=== PATIENT | male | born 1955 | race African-American/Black ===

== ENCOUNTER 2020-10-01 06:45 | Inpatient (IN) | payer MEDICARE ==
[2020-10-01 07:38] LABS: #Eosinphils 0.1 thou/uL (0.0-0.7); #Lymphocytes 0.9 thou/uL (1.20-3.40); %Basophils 0.6 % (0.0-1.0); %Eosinophils 1.6 % (0.0-10.0); %Lymphocytes 10.8 % (21.0-51.0); %Monocytes 12.7 % (0.0-10.0); %Neutrophils 74.3 % (42.0-75.0); Hemoglobin 11.5 g/dL (14.0-18.0); Mean Corpuscular HGB CONC 32.8 g/dL (32.0-36.0); Mean Corpuscular Hemoglobin 28.4 pg (27.0-31.0); Mean Corpuscular Volume 86.4 fL (78.0-98.0); Mean Platelet Volume 9.1 fL (7.4-10.4); Platelet Count 174 thou/uL (130-400); RBC Distribution Width 13.6 % (11.5-14.5); Red Blood Cell (RBC) Count 4.05 mill/uL (4.70-6.10); White Blood Cell (WBC) Count 8.1 thou/uL (4.8-10.8)
[2020-10-01] MEDS ORDERED: Calcium Chloride 1 GM/10 ML Abboject SYRINGE ONE (07:39)
[2020-10-01] MEDS ORDERED: EPINEPHrine 1 MG/10 ML Abboject SYRINGE ONE (07:39)
[2020-10-01] MEDS ORDERED: Sodium Bicarb 50 MEQ/50 ML Abboject 8.4% SYRINGE ONE (07:39)
[2020-10-01 07:58] LABS: ALT (SGPT) 17 U/L (8-55); AST (SGOT) 22 U/L (5-34); Albumin 2.5 g/dL (3.4-4.8); Alkaline Phosphatase 106 U/L (40-110); Anion Gap 12 mmol/L (10-20); BUN (Urea Nitrogen) 37 mg/dL (8.4-25.7); Bilirubin, Total 0.3 mg/dL (0.2-1.2); Calc. Creatinine Clearance 0 mL/min (70-130); Calcium 7.8 mg/dL (7.8-10.44); Carbon Dioxide 22 mmol/L (23-31); Chloride 106 mmol/L (98-107); Globulin 2.6 g/dL (2.4-3.5); Glucose 109 mg/dL (80-115); Magnesium 1.9 mg/dL (1.6-2.6); Potassium 3.5 mmol/L (3.5-5.1); Protein, Total 5.1 g/dL (5.8-8.1); Sodium 136 mmol/L (136-145)
[2020-10-01 08:19] LABS: CKMB 4.6 ng/mL (0-6.6)
[2020-10-01 08:28] LABS: Bacteria/HPF None Seen HPF (None Seen); Bilirubin Negative (Negative); Blood, Urine 2+ (Negative); Clarity Clear (Clear); Glucose, Urine (Dipstick) 50 mg/dL (Negative); Ketone, Urine Negative (Negative); Leukocyte Negative Leu/uL (Negative); Nitrite Negative (Negative); Protein, Urine (Dipstick) 600 mg/dL (Neg-Trace); RBC/HPF 0-3 HPF (0-3); Specific Gravity, Urine 1.014 (1.002-1.036); Squamous Epithelial None Seen HPF (0-3); Urobilinogen Normal mg/dL (Less than 2); WBC/HPF 0-3 HPF (0-3)
[2020-10-01] MEDS ORDERED: Clopidogrel Bisulfate 75 MG TAB ONE (08:56)
[2020-10-01] MEDS ORDERED: Non-Formulary Item 1 EACH (Ventolin Hfa Inhaler [Ventolin Hfa Inhaler] 60 PUFF Inh) INH PRN (09:34)
[2020-10-01] MEDS ORDERED: Sodium Chloride 0.9% 1,000 ML IV SCH (09:34)
[2020-10-01] MEDS ORDERED: Calcium Carbonate 500 MG ChewTAB PO PRN (09:34)
[2020-10-01] MEDS ORDERED: Dextrose 50% Abboject 50 ML SYRINGE SLOW IVP PRN (09:34)
[2020-10-01] MEDS ORDERED: Guaifenesin DM 100-10/5 ML UDCUP PO PRN (09:34)
[2020-10-01] MEDS ORDERED: Senokot S 8.6-50 MG TAB PO PRN (09:34)
[2020-10-01] MEDS ORDERED: Ondansetron PF 4 MG/2 ML Vial IVP PRN (09:34)
[2020-10-01] MEDS ORDERED: HumaLOG 300 UNITS/3 ML VIAL SC PRN ×2 (09:34)
[2020-10-01] MEDS ORDERED: Dextrose 5% in Water 1,000 ML IV PRN (09:34)
[2020-10-01] MEDS ORDERED: Bisacodyl 10 MG SUPP PR PRN (09:34)
[2020-10-01] MEDS ORDERED: Rocuronium Bromide 10 MG/ML (10ML VIAL) ONE (09:36)
[2020-10-01] MEDS ORDERED: Ketamine 50 MG/ML (10ML VIAL) ONE (09:40)
[2020-10-01] MEDS ORDERED: EPINEPHrine 1 MG/ML AMP ONE ×2 (09:51→10:10)
[2020-10-01 10:08] LABS: Hemoglobin A1c Greater than 14.0 % (4.0-6.0)
[2020-10-01 10:50] LABS: Actual Bicarbonate (HCO3a) 20.9 mEq/L (22-28); Analyzer IN Cardio ER; Base Excess (BEa) -6.1 mEq/L (-2.0 to +3.0); CO2 Tension 47.6 mmHg (35.0-45.0); Carboxyhemoglobin (COHb) 0.3 gm% (0.0-3.0); Hemoglobin (Hb) 11.8 g/dL (14.0-18.0); O2 Tension (PaO2), arterial 125.7 mmHg (> 80.0); Potassium - ABG Lab 3.96 mmol/L (3.70-5.30); Puncture Site LBA; pH, Arterial 7.26 (7.35-7.45)
[2020-10-01] MEDS ORDERED: Ventilator Sedation Protocol 1 EACH FS ONE (12:35)
[2020-10-01] MEDS ORDERED: Fentanyl CADD 100 ML IV SCH (12:45)
[2020-10-01] MEDS ORDERED: Propofol BOLUS 1,000 MG/100 ML VIAL IV PRN (12:45)
[2020-10-01] MEDS ORDERED: Morphine 2 MG/ML VIAL SLOW IVP PRN (12:45)
[2020-10-01] MEDS ORDERED: DISCONTINUE PREVIOUS NARCOTIC PAIN MEDICATIONS AND BENZODIAZEPINES FS SCH (12:45)
[2020-10-01] MEDS ORDERED: Fentanyl BOLUS 250 ML IVPB PRN (12:45)
[2020-10-01] MEDS ORDERED: Iopamidol-370 76% 500 ML 1 ML ONE (12:48)
[2020-10-01] MEDS ORDERED: Norepinephrine 8 MG/0.9% NS 250 ML IVPB SCH (13:15)
[2020-10-01] MEDS ORDERED: DO NOT USE PRE-EXISTING LYTE PROTOCOL FS SCH (13:15)
[2020-10-01] MEDS ORDERED: Phenylephrine 40 MG in Sodium Chloride 0.9% 250 ML 250 ML IVPB SCH (13:15)
[2020-10-01] MEDS ORDERED: Nitroglycerin 50 MG/250 ML BOT 250 ML IVPB PRN (13:21)
[2020-10-01] MEDS: Propofol 1,000 MG/100 ML VIAL IV PRN ×2 (13:22→17:28)
[2020-10-01] MEDS ORDERED: Nitroglycerin 0.4 MG TAB (25 Tab Bottle) SL PRN (13:31)
[2020-10-01 14:02] LABS: Hemoglobin 10.8 g/dL (14.0-18.0); Mean Corpuscular HGB CONC 32.5 g/dL (32.0-36.0); Mean Corpuscular Hemoglobin 27.7 pg (27.0-31.0); Mean Corpuscular Volume 85.4 fL (78.0-98.0); Mean Platelet Volume 8.8 fL (7.4-10.4); Platelet Count 177 thou/uL (130-400); RBC Distribution Width 13.4 % (11.5-14.5); White Blood Cell (WBC) Count 15.6 thou/uL (4.8-10.8)
[2020-10-01 14:05] LABS: FSP-Qualitative ABNORMAL (Normal)
[2020-10-01 14:06] LABS: Fibrinogen 169 mg/dL (253-463)
[2020-10-01 14:07] LABS: INR-International Normal Ratio 2.4; Prothrombin Time 26.6 sec (12.0-14.7)
[2020-10-01 14:08] LABS: FSP-Semiquantitative >320 mcg/mL (Less than 5); PTT 75.6 sec (22.9-36.1)
[2020-10-01 14:15] LABS: Lactic Acid 0.8 mmol/L (0.5-2.2)
[2020-10-01 14:16] LABS: Band 3 % (5-11); Lymphocytes 11 % (21-51); MDiff Complete? YES; Monocytes 2 % (0-10); Neutrophil 83 % (42-75); Platelet Morphology Comment Appears Adequate; Polychromasia SLIGHT = 2-3 cells (100X) (0-2/hpf)
[2020-10-01 14:22] LABS: D-Dimer Test Greater than 20.00 *mcg/mL (0.27-0.43)
[2020-10-01 14:23] LABS: ALT (SGPT) 343 U/L (8-55); AST (SGOT) 502 U/L (5-34); Albumin 2.3 g/dL (3.4-4.8); Alkaline Phosphatase 229 U/L (40-110); Anion Gap 12 mmol/L (10-20); BUN (Urea Nitrogen) 39 mg/dL (8.4-25.7); Bilirubin, Total 0.7 mg/dL (0.2-1.2); Calc. Creatinine Clearance 0 mL/min (70-130); Calcium 7.8 mg/dL (7.8-10.44); Carbon Dioxide 23 mmol/L (23-31); Chloride 107 mmol/L (98-107); Globulin 2.7 g/dL (2.4-3.5); Glucose 154 mg/dL (80-115); Potassium 3.7 mmol/L (3.5-5.1); Sodium 138 mmol/L (136-145)
[2020-10-01] MEDS: Lorazepam 2 MG/ML VIAL SLOW IVP PRN ×3 (14:31→20:31)
[2020-10-01] MEDS: Piperacillin/Tazobactam 2.25 GM in Sodium Chloride 0.9% 100 ML IVPB SCH ×2 (14:31→21:16)
[2020-10-01 14:48] LABS: CKMB 6.1 ng/mL (0-6.6)
[2020-10-01] MEDS ORDERED: Heparin 10,000 UNITS/ 10 ML VIAL SLOW IVP SCH (16:15)
[2020-10-01 16:44] LABS: SARS-CoV-2 PCR by NAA Not Detected (NotDetected)
[2020-10-01 18:02] LABS: Troponin I 0.522 ng/mL (< 0.028)
[2020-10-01 20:15] LABS: #Eosinphils 0.1 thou/uL (0.0-0.7); #Lymphocytes 1.2 thou/uL (1.20-3.40); #Monocytes 0.9 thou/uL (0.11-0.59); #Neutrophils 9.4 thou/uL (1.40-6.50); %Basophils 0.3 % (0.0-1.0); %Eosinophils 0.7 % (0.0-10.0); %Lymphocytes 10.4 % (21.0-51.0); %Monocytes 7.8 % (0.0-10.0); %Neutrophils 80.7 % (42.0-75.0); Mean Corpuscular Hemoglobin 28.2 pg (27.0-31.0); Mean Corpuscular Volume 85.4 fL (78.0-98.0); Platelet Count 173 thou/uL (130-400); RBC Distribution Width 13.4 % (11.5-14.5); Red Blood Cell (RBC) Count 3.56 mill/uL (4.70-6.10); White Blood Cell (WBC) Count 11.7 thou/uL (4.8-10.8)
[2020-10-01 20:23] LABS: INR-International Normal Ratio 1.9; Prothrombin Time 22.2 sec (12.0-14.7)
[2020-10-01 20:24] LABS: PTT 56.3 sec (22.9-36.1)
[2020-10-01 20:47] LABS: Anion Gap 11 mmol/L (10-20); BUN (Urea Nitrogen) 38 mg/dL (8.4-25.7); Calc. Creatinine Clearance 47 mL/min (70-130); Calcium 7.8 mg/dL (7.8-10.44); Carbon Dioxide 22 mmol/L (23-31); Chloride 109 mmol/L (98-107); Glucose 109 mg/dL (80-115); Potassium 3.6 mmol/L (3.5-5.1); Sodium 138 mmol/L (136-145)
[2020-10-01 20:55] LABS: Phosphorus 3.8 mg/dL (2.3-4.7)
[2020-10-01] MEDS ORDERED: Apixaban 2.5 MG TAB PO SCH (21:00)
[2020-10-01] MEDS ORDERED: Apixaban 5 MG TAB PO SCH (21:00)
[2020-10-01] MEDS ORDERED: Atorvastatin Calcium 40 MG TAB PO SCH (21:00)
[2020-10-01] MEDS: Carvedilol 6.25 MG TAB PO SCH (21:17)
[2020-10-01] MEDS: Atorvastatin Calcium 40 MG TAB PO SCH (21:17)
[2020-10-01] MEDS: Heparin 25,000 units/D5W 500 ML IV SCH (21:52)
[2020-10-02] MEDS: Lorazepam 2 MG/ML VIAL SLOW IVP PRN (00:52)
[2020-10-02] MEDS: Propofol 1,000 MG/100 ML VIAL IV PRN ×3 (02:12→21:45)
[2020-10-02] MEDS ORDERED: Vecuronium 10 MG VIAL IV PRN (02:15)
[2020-10-02 04:00] LABS: #Eosinphils 0.1 thou/uL (0.0-0.7); #Monocytes 0.7 thou/uL (0.11-0.59); #Neutrophils 7.1 thou/uL (1.40-6.50); %Basophils 0.5 % (0.0-1.0); %Eosinophils 1.5 % (0.0-10.0); %Monocytes 7.5 % (0.0-10.0); %Neutrophils 79.5 % (42.0-75.0); Hemoglobin 9.5 g/dL (14.0-18.0); Mean Corpuscular HGB CONC 32.9 g/dL (32.0-36.0); Mean Corpuscular Hemoglobin 28.2 pg (27.0-31.0); Mean Corpuscular Volume 85.8 fL (78.0-98.0); Mean Platelet Volume 9.1 fL (7.4-10.4); Platelet Count 151 thou/uL (130-400); RBC Distribution Width 13.4 % (11.5-14.5); Red Blood Cell (RBC) Count 3.36 mill/uL (4.70-6.10)
[2020-10-02 04:05] LABS: Prothrombin Time 22.6 sec (12.0-14.7)
[2020-10-02 04:19] LABS: Albumin 1.7 g/dL (3.4-4.8); Anion Gap 10 mmol/L (10-20); BUN (Urea Nitrogen) 34 mg/dL (8.4-25.7); BUN (Urea Nitrogen) 37 mg/dL (8.4-25.7); BUN/Creatinine Ratio 14.91; Calc. Creatinine Clearance 49 mL/min (70-130); Calc. Creatinine Clearance 50 mL/min (70-130); Calcium 7.6 mg/dL (7.8-10.44); Carbon Dioxide 21 mmol/L (23-31); Carbon Dioxide 22 mmol/L (23-31); Cardiac Risk 4.2 (Less than 4.5); Chloride 111 mmol/L (98-107); Cholesterol 140 mg/dl (< 200 Desired); Glucose 73 mg/dL (80-115); HDL Cholesterol 33 mg/dL (>60 Neg Risk); LDL Cholesterol, Calculated 93 mg/dL; Magnesium 1.8 mg/dL (1.6-2.6); Potassium 3.2 mmol/L (3.5-5.1); Sodium 139 mmol/L (136-145); Sodium 140 mmol/L (136-145); Triglycerides 68 mg/dL (Less than 150)
[2020-10-02 04:40] LABS: CKMB 6.1 ng/mL (0-6.6); PTT Greater than 250.0 sec (22.9-36.1)
[2020-10-02] MEDS: Piperacillin/Tazobactam 2.25 GM in Sodium Chloride 0.9% 100 ML IVPB SCH ×3 (05:18→21:02)
[2020-10-02 07:28] LABS: INR-International Normal Ratio 1.7; Prothrombin Time 20.4 sec (12.0-14.7)
[2020-10-02 07:47] LABS: PTT Greater than 250.0 sec (22.9-36.1)
[2020-10-02 08:46] LABS: Actual Bicarbonate (HCO3a) 22.8 mEq/L (22-28); Base Excess (BEa) -0.6 mEq/L (-2.0 to +3.0); CO2 Tension 32.8 mmHg (35.0-45.0); Calcium, Ionized (arterial) 1.13 mmol/L (1.12-1.30); Carboxyhemoglobin (COHb) 0.3 gm% (0.0-3.0); Hemoglobin (Hb) 10.3 g/dL (14.0-18.0); O2 Tension (PaO2), arterial 112.9 mmHg (> 80.0); Potassium - ABG Lab 3.36 mmol/L (3.70-5.30); pH, Arterial 7.46 (7.35-7.45)
[2020-10-02 08:47] LABS: Puncture Site Arterial Line
[2020-10-02 08:50] LABS: #Eosinphils 0.1 thou/uL (0.0-0.7); #Lymphocytes 0.8 thou/uL (1.20-3.40); #Monocytes 0.8 thou/uL (0.11-0.59); #Neutrophils 7.6 thou/uL (1.40-6.50); %Basophils 0.2 % (0.0-1.0); %Eosinophils 1.5 % (0.0-10.0); %Lymphocytes 8.5 % (21.0-51.0); %Monocytes 8.1 % (0.0-10.0); %Neutrophils 81.8 % (42.0-75.0); Hemoglobin 9.9 g/dL (14.0-18.0); Mean Corpuscular HGB CONC 32.2 g/dL (32.0-36.0); Mean Corpuscular Hemoglobin 27.9 pg (27.0-31.0); Mean Corpuscular Volume 86.4 fL (78.0-98.0); Mean Platelet Volume 9.1 fL (7.4-10.4); Platelet Count 154 thou/uL (130-400); RBC Distribution Width 13.4 % (11.5-14.5); Red Blood Cell (RBC) Count 3.55 mill/uL (4.70-6.10); White Blood Cell (WBC) Count 9.3 thou/uL (4.8-10.8)
[2020-10-02] MEDS: Pantoprazole 40 MG VIAL IVP SCH (08:55)
[2020-10-02] MEDS ORDERED: Clopidogrel Bisulfate 75 MG TAB PO SCH (09:00)
[2020-10-02] MEDS: Aspirin 325 mg Enteric Coated Tablet PO SCH (09:01)
[2020-10-02] MEDS: Dextrose 5 % And 0.9 % NaCl 1,000 ML IV SCH ×2 (09:02→23:24)
[2020-10-02 09:11] LABS: Anion Gap 10 mmol/L (10-20); BUN (Urea Nitrogen) 31 mg/dL (8.4-25.7); Calc. Creatinine Clearance 50 mL/min (70-130); Calcium 7.4 mg/dL (7.8-10.44); Carbon Dioxide 20 mmol/L (23-31); Chloride 111 mmol/L (98-107); Glucose 100 mg/dL (80-115); Magnesium 1.9 mg/dL (1.6-2.6); Phosphorus 3.8 mg/dL (2.3-4.7); Potassium 3.3 mmol/L (3.5-5.1); Sodium 138 mmol/L (136-145)
[2020-10-02] MEDS: Carvedilol 6.25 MG TAB PO SCH ×2 (09:19→21:02)
[2020-10-02 09:40] LABS: CKMB 6.8 ng/mL (0-6.6)
[2020-10-02 12:04] LABS: Chloride 110 mmol/L (98-107); Potassium 3.4 mmol/L (3.5-5.1); Sodium 138 mmol/L (136-145)
[2020-10-02 12:05] LABS: Calcium 7.3 mg/dL (7.8-10.44); Glucose 85 mg/dL (80-115)
[2020-10-02 12:07] LABS: Anion Gap 8 mmol/L (10-20); Carbon Dioxide 23 mmol/L (23-31)
[2020-10-02 12:09] LABS: Calc. Creatinine Clearance 52 mL/min (70-130); Phosphorus 3.9 mg/dL (2.3-4.7)
[2020-10-02 12:10] LABS: BUN (Urea Nitrogen) 31 mg/dL (8.4-25.7)
[2020-10-02 12:11] LABS: Magnesium 1.8 mg/dL (1.6-2.6)
[2020-10-02 16:25] LABS: Anion Gap 9 mmol/L (10-20); BUN (Urea Nitrogen) 29 mg/dL (8.4-25.7); Calc. Creatinine Clearance 51 mL/min (70-130); Calcium 7.4 mg/dL (7.8-10.44); Carbon Dioxide 22 mmol/L (23-31); Chloride 113 mmol/L (98-107); Glucose 76 mg/dL (80-115); Potassium 3.4 mmol/L (3.5-5.1); Sodium 141 mmol/L (136-145)
[2020-10-02 20:31] LABS: Anion Gap 11 mmol/L (10-20); BUN (Urea Nitrogen) 29 mg/dL (8.4-25.7); Calc. Creatinine Clearance 49 mL/min (70-130); Calcium 7.3 mg/dL (7.8-10.44); Carbon Dioxide 24 mmol/L (23-31); Chloride 111 mmol/L (98-107); Glucose 82 mg/dL (80-115); Potassium 3.6 mmol/L (3.5-5.1); Sodium 142 mmol/L (136-145)
[2020-10-02] MEDS: Atorvastatin Calcium 40 MG TAB PO SCH (21:03)
[2020-10-02 23:35] LABS: PTT 217.1 sec (22.9-36.1)
[2020-10-03 01:49] LABS: INR-International Normal Ratio 1.4
[2020-10-03] MEDS: Heparin 25,000 units/D5W 500 ML IV SCH (02:12)
[2020-10-03 04:37] LABS: #Eosinphils 0.3 thou/uL (0.0-0.7); #Lymphocytes 1.2 thou/uL (1.20-3.40); #Monocytes 0.8 thou/uL (0.11-0.59); #Neutrophils 7.7 thou/uL (1.40-6.50); %Basophils 0.3 % (0.0-1.0); %Neutrophils 76.7 % (42.0-75.0); Hemoglobin 9.6 g/dL (14.0-18.0); Mean Corpuscular HGB CONC 32.3 g/dL (32.0-36.0); Mean Corpuscular Hemoglobin 27.9 pg (27.0-31.0); Mean Corpuscular Volume 86.6 fL (78.0-98.0); Mean Platelet Volume 9.4 fL (7.4-10.4); Platelet Count 173 thou/uL (130-400); RBC Distribution Width 13.6 % (11.5-14.5); Red Blood Cell (RBC) Count 3.43 mill/uL (4.70-6.10)
[2020-10-03 04:56] LABS: Anion Gap 10 mmol/L (10-20); BUN (Urea Nitrogen) 27 mg/dL (8.4-25.7); Calc. Creatinine Clearance 47 mL/min (70-130); Calcium 7.4 mg/dL (7.8-10.44); Carbon Dioxide 25 mmol/L (23-31); Chloride 111 mmol/L (98-107); Glucose 84 mg/dL (80-115); Potassium 3.6 mmol/L (3.5-5.1); Sodium 142 mmol/L (136-145)
[2020-10-03] MEDS: Propofol 1,000 MG/100 ML VIAL IV PRN ×3 (05:21→21:42)
[2020-10-03] MEDS: Piperacillin/Tazobactam 2.25 GM in Sodium Chloride 0.9% 100 ML IVPB SCH (05:21)
[2020-10-03 07:39] LABS: Actual Bicarbonate (HCO3a) 21.3 mEq/L (22-28); Base Excess (BEa) -1.2 mEq/L (-2.0 to +3.0); Calcium, Ionized (arterial) 1.04 mmol/L (1.12-1.30); Carboxyhemoglobin (COHb) 0.3 gm% (0.0-3.0); Hemoglobin (Hb) 9.3 g/dL (14.0-18.0); O2 Tension (PaO2), arterial 171.8 mmHg (> 80.0); Potassium - ABG Lab 3.49 mmol/L (3.70-5.30)
[2020-10-03 07:45] LABS: Puncture Site Arterial Line
[2020-10-03] MEDS: Carvedilol 6.25 MG TAB PO SCH ×2 (08:07→21:43)
[2020-10-03] MEDS: Aspirin 325 mg Enteric Coated Tablet PO SCH (08:07)
[2020-10-03] MEDS: Pantoprazole 40 MG VIAL IVP SCH (08:08)
[2020-10-03 08:16] LABS: INR-International Normal Ratio 1.3; Prothrombin Time 16.8 sec (12.0-14.7)
[2020-10-03 08:28] LABS: PTT 142.2 sec (22.9-36.1)
[2020-10-03] MEDS: Cefdinir 300 MG CAP PER TUBE SCH (08:36)
[2020-10-03] MEDS: Lorazepam 2 MG/ML VIAL SLOW IVP PRN ×2 (09:39→21:42)
[2020-10-03] MEDS: Atorvastatin Calcium 40 MG TAB PO SCH (21:43)
[2020-10-04] MEDS: Lorazepam 2 MG/ML VIAL SLOW IVP PRN (05:28)
[2020-10-04 05:52] LABS: RBC Distribution Width 13.6 % (11.5-14.5); Red Blood Cell (RBC) Count 3.29 mill/uL (4.70-6.10)
[2020-10-04 05:53] LABS: Anion Gap 12 mmol/L (10-20); BUN (Urea Nitrogen) 24 mg/dL (8.4-25.7); Calc. Creatinine Clearance 43 mL/min (70-130); Calcium 7.8 mg/dL (7.8-10.44); Carbon Dioxide 24 mmol/L (23-31); Chloride 111 mmol/L (98-107); Glucose 138 mg/dL (80-115); Potassium 3.6 mmol/L (3.5-5.1); Sodium 143 mmol/L (136-145)
[2020-10-04 06:12] LABS: #Basophils 0.1 thou/uL (0.0-0.2); #Eosinphils 0.5 thou/uL (0.0-0.7); #Lymphocytes 1.7 thou/uL (1.20-3.40); #Neutrophils 7.5 thou/uL (1.40-6.50); %Basophils 0.5 % (0.0-1.0); %Eosinophils 4.6 % (0.0-10.0); %Lymphocytes 15.5 % (21.0-51.0); %Monocytes 9.5 % (0.0-10.0); Hemoglobin 9.2 g/dL (14.0-18.0); Mean Corpuscular HGB CONC 32.2 g/dL (32.0-36.0); Mean Corpuscular Volume 87.1 fL (78.0-98.0); Mean Platelet Volume 9.3 fL (7.4-10.4); Platelet Count 216 thou/uL (130-400); White Blood Cell (WBC) Count 10.7 thou/uL (4.8-10.8)
[2020-10-04 07:26] LABS: Actual Bicarbonate (HCO3a) 24.8 mEq/L (22-28); Base Excess (BEa) 0.3 mEq/L (-2.0 to +3.0); CO2 Tension 39.4 mmHg (35.0-45.0); Calcium, Ionized (arterial) 1.07 mmol/L (1.12-1.30); Carboxyhemoglobin (COHb) 0.5 gm% (0.0-3.0); Hemoglobin (Hb) 9.2 g/dL (14.0-18.0); O2 Tension (PaO2), arterial 100.3 mmHg (> 80.0); pH, Arterial 7.42 (7.35-7.45)
[2020-10-04 07:47] LABS: Puncture Site RBA
[2020-10-04] MEDS: Aspirin 325 MG TAB PO SCH (08:58)
[2020-10-04] MEDS: Cefdinir 300 MG CAP PER TUBE SCH (08:59)
[2020-10-04] MEDS: Carvedilol 6.25 MG TAB PO SCH ×2 (08:59→20:43)
[2020-10-04] MEDS: hydrALAZINE 20 MG/ML VIAL SLOW IVP PRN (09:48)
[2020-10-04] MEDS: Heparin 25,000 units/D5W 500 ML IV SCH (09:48)
[2020-10-04] MEDS: Pantoprazole 40 MG VIAL IVP SCH (09:49)
[2020-10-04 15:07] LABS: PTT 192.8 sec (22.9-36.1)
[2020-10-04] MEDS: Warfarin Sodium 5 MG TAB PO SCH (16:54)
[2020-10-04] MEDS: Acetaminophen 325 MG TAB PO PRN (20:42)
[2020-10-04] MEDS: Atorvastatin Calcium 40 MG TAB PO SCH (20:43)
[2020-10-05 04:49] LABS: #Eosinphils 0.3 thou/uL (0.0-0.7); #Lymphocytes 1.3 thou/uL (1.20-3.40); #Monocytes 1.4 thou/uL (0.11-0.59); #Neutrophils 8.8 thou/uL (1.40-6.50); %Eosinophils 2.6 % (0.0-10.0); %Lymphocytes 10.8 % (21.0-51.0); %Monocytes 11.6 % (0.0-10.0); %Neutrophils 74.9 % (42.0-75.0); Hemoglobin 8.7 g/dL (14.0-18.0); Mean Corpuscular HGB CONC 32.9 g/dL (32.0-36.0); Mean Corpuscular Hemoglobin 28.3 pg (27.0-31.0); Mean Corpuscular Volume 86.2 fL (78.0-98.0); Mean Platelet Volume 8.2 fL (7.4-10.4); Platelet Count 211 thou/uL (130-400); RBC Distribution Width 13.4 % (11.5-14.5); Red Blood Cell (RBC) Count 3.06 mill/uL (4.70-6.10); White Blood Cell (WBC) Count 11.8 thou/uL (4.8-10.8)
[2020-10-05 04:55] LABS: INR-International Normal Ratio 1.1; Prothrombin Time 14.9 sec (12.0-14.7)
[2020-10-05 05:14] LABS: Anion Gap 13 mmol/L (10-20); BUN (Urea Nitrogen) 20 mg/dL (8.4-25.7); Calc. Creatinine Clearance 47 mL/min (70-130); Calcium 7.9 mg/dL (7.8-10.44); Carbon Dioxide 25 mmol/L (23-31); Chloride 110 mmol/L (98-107); Glucose 130 mg/dL (80-115); Potassium 3.7 mmol/L (3.5-5.1); Sodium 144 mmol/L (136-145)
[2020-10-05] MEDS: Aspirin 325 MG TAB PO SCH (10:04)
[2020-10-05] MEDS: Carvedilol 6.25 MG TAB PO SCH ×2 (10:04→21:08)
[2020-10-05] MEDS: Cefdinir 300 MG CAP PER TUBE SCH (10:05)
[2020-10-05] MEDS: Pantoprazole 40 MG VIAL IVP SCH (10:05)
[2020-10-05] MEDS: HumaLOG 300 UNITS/3 ML VIAL SC PRN ×2 (11:14→16:54)
[2020-10-05] MEDS: hydrALAZINE 20 MG/ML VIAL SLOW IVP PRN (13:50)
[2020-10-05] MEDS: Warfarin Sodium 5 MG TAB PO SCH (16:43)
[2020-10-05] MEDS: Heparin 25,000 units/D5W 500 ML IV SCH (21:08)
[2020-10-05] MEDS: Atorvastatin Calcium 40 MG TAB PO SCH (21:08)
[2020-10-06 04:39] LABS: #Eosinphils 0.3 thou/uL (0.0-0.7); #Lymphocytes 1.3 thou/uL (1.20-3.40); #Monocytes 1.4 thou/uL (0.11-0.59); #Neutrophils 10.6 thou/uL (1.40-6.50); %Basophils 0.3 % (0.0-1.0); %Eosinophils 2.6 % (0.0-10.0); %Lymphocytes 9.4 % (21.0-51.0); %Monocytes 10.3 % (0.0-10.0); %Neutrophils 77.4 % (42.0-75.0); Hemoglobin 8.7 g/dL (14.0-18.0); Mean Corpuscular Hemoglobin 26.9 pg (27.0-31.0); Mean Corpuscular Volume 86.7 fL (78.0-98.0); Mean Platelet Volume 8.1 fL (7.4-10.4); Platelet Count 224 thou/uL (130-400); RBC Distribution Width 13.4 % (11.5-14.5); Red Blood Cell (RBC) Count 3.23 mill/uL (4.70-6.10); White Blood Cell (WBC) Count 13.7 thou/uL (4.8-10.8)
[2020-10-06 05:44] LABS: Anion Gap 14 mmol/L (10-20); BUN (Urea Nitrogen) 21 mg/dL (8.4-25.7); Calc. Creatinine Clearance 45 mL/min (70-130); Calcium 7.7 mg/dL (7.8-10.44); Carbon Dioxide 21 mmol/L (23-31); Chloride 111 mmol/L (98-107); Glucose 299 mg/dL (80-115); Potassium 3.8 mmol/L (3.5-5.1); Sodium 142 mmol/L (136-145)
[2020-10-06] MEDS: HumaLOG 300 UNITS/3 ML VIAL SC PRN ×3 (06:30→17:51)
[2020-10-06] MEDS: Cefdinir 300 MG CAP PER TUBE SCH (08:06)
[2020-10-06] MEDS: Aspirin 325 MG TAB PO SCH (08:06)
[2020-10-06] MEDS: Carvedilol 6.25 MG TAB PO SCH ×2 (08:07→20:49)
[2020-10-06] MEDS: Pantoprazole 40 MG VIAL IVP SCH (08:07)
[2020-10-06] MEDS: hydrALAZINE 20 MG/ML VIAL SLOW IVP PRN (12:15)
[2020-10-06] MEDS: Acetaminophen 325 MG TAB PO PRN (12:15)
[2020-10-06] MEDS: traMADol HCl 50 MG TAB PO PRN ×2 (12:53→20:48)
[2020-10-06 14:13] VITALS: BMI 28.5
[2020-10-06 14:48] LABS: INR-International Normal Ratio 1.3; Prothrombin Time 16.3 sec (12.0-14.7)
[2020-10-06] MEDS: Warfarin Sodium 5 MG TAB PO SCH (17:51)
[2020-10-06] MEDS: Atorvastatin Calcium 40 MG TAB PO SCH (20:50)
[2020-10-06] MEDS ORDERED: Lantus 1000 UNITS/10 ML VIAL SC SCH (21:00)
[2020-10-07] MEDS: Heparin 25,000 units/D5W 500 ML IV SCH (00:08)
[2020-10-07 05:02] LABS: #Eosinphils 0.4 thou/uL (0.0-0.7); #Lymphocytes 1.6 thou/uL (1.20-3.40); #Monocytes 1.5 thou/uL (0.11-0.59); #Neutrophils 8.5 thou/uL (1.40-6.50); %Basophils 0.1 % (0.0-1.0); %Eosinophils 3.5 % (0.0-10.0); %Lymphocytes 13.1 % (21.0-51.0); %Monocytes 12.3 % (0.0-10.0); %Neutrophils 70.9 % (42.0-75.0); Hemoglobin 8.4 g/dL (14.0-18.0); Mean Corpuscular HGB CONC 31.6 g/dL (32.0-36.0); Mean Corpuscular Hemoglobin 27.4 pg (27.0-31.0); Mean Corpuscular Volume 86.8 fL (78.0-98.0); Mean Platelet Volume 8.2 fL (7.4-10.4); Platelet Count 236 thou/uL (130-400); RBC Distribution Width 13.4 % (11.5-14.5); Red Blood Cell (RBC) Count 3.06 mill/uL (4.70-6.10)
[2020-10-07 05:08] LABS: INR-International Normal Ratio 1.4; Prothrombin Time 17.2 sec (12.0-14.7)
[2020-10-07 05:10] LABS: PTT 95.3 sec (22.9-36.1)
[2020-10-07 05:18] LABS: Anion Gap 10 mmol/L (10-20); BUN (Urea Nitrogen) 20 mg/dL (8.4-25.7); Calc. Creatinine Clearance 48 mL/min (70-130); Calcium 7.6 mg/dL (7.8-10.44); Carbon Dioxide 23 mmol/L (23-31); Chloride 107 mmol/L (98-107); Glucose 191 mg/dL (80-115); Potassium 3.4 mmol/L (3.5-5.1); Sodium 137 mmol/L (136-145)
[2020-10-07] MEDS: HumaLOG 300 UNITS/3 ML VIAL SC PRN ×2 (06:39→17:23)
[2020-10-07] MEDS: Pantoprazole 40 MG VIAL IVP SCH (08:07)
[2020-10-07] MEDS: Aspirin 325 MG TAB PO SCH (08:07)
[2020-10-07] MEDS: Amlodipine 5 MG TAB PO SCH (08:07)
[2020-10-07] MEDS: Carvedilol 6.25 MG TAB PO SCH ×2 (08:07→22:22)
[2020-10-07] MEDS ORDERED: Lantus 1000 UNITS/10 ML VIAL SC SCH (09:36)
[2020-10-07] MEDS ORDERED: Potassium Chloride 20 MEQ TAB PO SCH (09:45)
[2020-10-07] MEDS: Warfarin Sodium 5 MG TAB PO SCH (17:24)
[2020-10-07] MEDS: Atorvastatin Calcium 40 MG TAB PO SCH (22:22)
[2020-10-08 04:50] LABS: #Eosinphils 0.4 thou/uL (0.0-0.7); #Lymphocytes 1.5 thou/uL (1.20-3.40); #Monocytes 1.2 thou/uL (0.11-0.59); #Neutrophils 7.4 thou/uL (1.40-6.50); %Basophils 0.4 % (0.0-1.0); %Eosinophils 4.2 % (0.0-10.0); %Lymphocytes 14.4 % (21.0-51.0); %Monocytes 11.2 % (0.0-10.0); %Neutrophils 69.9 % (42.0-75.0); Hemoglobin 8.1 g/dL (14.0-18.0); Mean Corpuscular HGB CONC 31.4 g/dL (32.0-36.0); Mean Corpuscular Hemoglobin 26.9 pg (27.0-31.0); Mean Corpuscular Volume 85.6 fL (78.0-98.0); Mean Platelet Volume 7.8 fL (7.4-10.4); Platelet Count 258 thou/uL (130-400); RBC Distribution Width 13.2 % (11.5-14.5); Red Blood Cell (RBC) Count 2.99 mill/uL (4.70-6.10); White Blood Cell (WBC) Count 10.6 thou/uL (4.8-10.8)
[2020-10-08 05:05] LABS: Anion Gap 11 mmol/L (10-20); BUN (Urea Nitrogen) 21 mg/dL (8.4-25.7); Calc. Creatinine Clearance 47 mL/min (70-130); Calcium 7.9 mg/dL (7.8-10.44); Carbon Dioxide 23 mmol/L (23-31); Chloride 105 mmol/L (98-107); Glucose 198 mg/dL (80-115); Potassium 3.3 mmol/L (3.5-5.1); Sodium 136 mmol/L (136-145)
[2020-10-08] MEDS: HumaLOG 300 UNITS/3 ML VIAL SC PRN (06:36)
[2020-10-08] MEDS: Carvedilol 6.25 MG TAB PO SCH ×2 (09:33→22:05)
[2020-10-08] MEDS: Amlodipine 5 MG TAB PO SCH (09:33)
[2020-10-08] MEDS: Aspirin 81 mg Enteric Coated Tablet PO SCH (09:33)
[2020-10-08] MEDS ORDERED: Potassium Chloride 20 MEQ TAB PO SCH (10:45)
[2020-10-08] MEDS ORDERED: Amlodipine 5 MG TAB PO SCH (10:45)
[2020-10-08] MEDS ORDERED: Lantus 1000 UNITS/10 ML VIAL SC SCH (10:47)
[2020-10-08 11:06] LABS: INR-International Normal Ratio 1.4; Prothrombin Time 17.9 sec (12.0-14.7)
[2020-10-08] MEDS: hydrALAZINE 20 MG/ML VIAL SLOW IVP PRN (11:21)
[2020-10-08] MEDS: Warfarin Sodium 3 MG TAB PO SCH (16:08)
[2020-10-08] MEDS: Heparin 25,000 units/D5W 500 ML IV SCH (16:09)
[2020-10-08 16:59] LABS: #Eosinphils 0.4 thou/uL (0.0-0.7); #Lymphocytes 1.6 thou/uL (1.20-3.40); #Monocytes 1.1 thou/uL (0.11-0.59); #Neutrophils 8.4 thou/uL (1.40-6.50); %Basophils 0.3 % (0.0-1.0); %Eosinophils 3.7 % (0.0-10.0); %Monocytes 9.7 % (0.0-10.0); %Neutrophils 72.4 % (42.0-75.0); Hemoglobin 7.9 g/dL (14.0-18.0); Mean Corpuscular HGB CONC 32.9 g/dL (32.0-36.0); Mean Corpuscular Volume 85.1 fL (78.0-98.0); Mean Platelet Volume 8.2 fL (7.4-10.4); Platelet Count 269 thou/uL (130-400); RBC Distribution Width 13.3 % (11.5-14.5); Red Blood Cell (RBC) Count 2.83 mill/uL (4.70-6.10); White Blood Cell (WBC) Count 11.6 thou/uL (4.8-10.8)
[2020-10-08 17:21] LABS: ALT (SGPT) 37 U/L (8-55); AST (SGOT) 32 U/L (5-34); Albumin 1.9 g/dL (3.4-4.8); Alkaline Phosphatase 132 U/L (40-110); Anion Gap 11 mmol/L (10-20); BUN (Urea Nitrogen) 23 mg/dL (8.4-25.7); Bilirubin, Total 0.3 mg/dL (0.2-1.2); Calc. Creatinine Clearance 53 mL/min (70-130); Calcium 7.5 mg/dL (7.8-10.44); Carbon Dioxide 22 mmol/L (23-31); Chloride 105 mmol/L (98-107); Globulin 3.3 g/dL (2.4-3.5); Glucose 116 mg/dL (80-115); Potassium 4.2 mmol/L (3.5-5.1); Protein, Total 5.2 g/dL (5.8-8.1); Sodium 134 mmol/L (136-145)
[2020-10-08] MEDS: Senokot S 8.6-50 MG TAB PO SCH (22:05)
[2020-10-08] MEDS: Atorvastatin Calcium 40 MG TAB PO SCH (22:05)
[2020-10-08] MEDS: Polyethylene Glycol 3350 17 GM Packet PO SCH (22:06)
[2020-10-09 04:26] LABS: #Eosinphils 0.4 thou/uL (0.0-0.7); #Lymphocytes 1.5 thou/uL (1.20-3.40); #Monocytes 1.3 thou/uL (0.11-0.59); %Basophils 0.4 % (0.0-1.0); %Eosinophils 3.4 % (0.0-10.0); %Lymphocytes 12.3 % (21.0-51.0); %Monocytes 10.3 % (0.0-10.0); %Neutrophils 73.7 % (42.0-75.0); Mean Corpuscular HGB CONC 33.2 g/dL (32.0-36.0); Mean Corpuscular Hemoglobin 28.1 pg (27.0-31.0); Mean Corpuscular Volume 84.8 fL (78.0-98.0); Mean Platelet Volume 8.1 fL (7.4-10.4); Platelet Count 269 thou/uL (130-400); RBC Distribution Width 13.3 % (11.5-14.5); Red Blood Cell (RBC) Count 2.85 mill/uL (4.70-6.10); White Blood Cell (WBC) Count 12.2 thou/uL (4.8-10.8)
[2020-10-09 04:33] LABS: INR-International Normal Ratio 1.6; Prothrombin Time 19.4 sec (12.0-14.7)
[2020-10-09 04:34] LABS: PTT 112.2 sec (22.9-36.1)
[2020-10-09 04:52] LABS: Anion Gap 11 mmol/L (10-20); BUN (Urea Nitrogen) 23 mg/dL (8.4-25.7); Calc. Creatinine Clearance 49 mL/min (70-130); Calcium 7.6 mg/dL (7.8-10.44); Carbon Dioxide 22 mmol/L (23-31); Chloride 105 mmol/L (98-107); Glucose 174 mg/dL (80-115); Potassium 4.2 mmol/L (3.5-5.1); Sodium 134 mmol/L (136-145)
[2020-10-09] MEDS: Aspirin 81 mg Enteric Coated Tablet PO SCH (10:02)
[2020-10-09] MEDS: Polyethylene Glycol 3350 17 GM Packet PO SCH ×2 (10:02→20:34)
[2020-10-09] MEDS: Senokot S 8.6-50 MG TAB PO SCH ×2 (10:02→20:34)
[2020-10-09] MEDS: Carvedilol 6.25 MG TAB PO SCH ×2 (10:03→20:35)
[2020-10-09] MEDS: Amlodipine 5 MG TAB PO SCH (10:03)
[2020-10-09 12:31] LABS: Actual Bicarbonate (HCO3a) 24.3 mEq/L (22-28); Analyzer IN Cardio OR; Base Excess (BEa) 0.2 mEq/L (-2.0 to +3.0); CO2 Tension 36.9 mmHg (35.0-45.0); Calcium, Ionized (arterial) 1.08 mmol/L (1.12-1.30); Carboxyhemoglobin (COHb) 0.6 gm% (0.0-3.0); Hemoglobin (Hb) 8.3 g/dL (14.0-18.0); O2 Tension (PaO2), arterial 68.2 mmHg (> 80.0); Potassium - ABG Lab 3.97 mmol/L (3.70-5.30); pH, Arterial 7.44 (7.35-7.45)
[2020-10-09 12:46] LABS: ALV-art Gradient 113.835 mmHg (0-20); Puncture Site RRA
[2020-10-09] MEDS: Warfarin Sodium 3 MG TAB PO SCH (17:56)
[2020-10-09] MEDS: Atorvastatin Calcium 40 MG TAB PO SCH (20:34)
[2020-10-10] MEDS: Heparin 25,000 units/D5W 500 ML IV SCH (00:34)
[2020-10-10 04:27] LABS: #Eosinphils 0.2 thou/uL (0.0-0.7); #Lymphocytes 1.5 thou/uL (1.20-3.40); #Monocytes 1.4 thou/uL (0.11-0.59); #Neutrophils 10.8 thou/uL (1.40-6.50); %Basophils 0.2 % (0.0-1.0); %Eosinophils 1.4 % (0.0-10.0); %Monocytes 10.1 % (0.0-10.0); %Neutrophils 77.3 % (42.0-75.0); Hemoglobin 7.7 g/dL (14.0-18.0); Mean Corpuscular HGB CONC 32.6 g/dL (32.0-36.0); Mean Corpuscular Hemoglobin 27.6 pg (27.0-31.0); Mean Corpuscular Volume 84.7 fL (78.0-98.0); Mean Platelet Volume 8.2 fL (7.4-10.4); Platelet Count 288 thou/uL (130-400); RBC Distribution Width 13.3 % (11.5-14.5); Red Blood Cell (RBC) Count 2.78 mill/uL (4.70-6.10)
[2020-10-10 04:44] LABS: Anion Gap 11 mmol/L (10-20); BUN (Urea Nitrogen) 23 mg/dL (8.4-25.7); Calc. Creatinine Clearance 47 mL/min (70-130); Calcium 7.5 mg/dL (7.8-10.44); Carbon Dioxide 24 mmol/L (23-31); Chloride 104 mmol/L (98-107); Glucose 183 mg/dL (80-115); Potassium 3.9 mmol/L (3.5-5.1); Sodium 135 mmol/L (136-145)
[2020-10-10] MEDS: Amlodipine 5 MG TAB PO SCH (08:08)
[2020-10-10] MEDS: Carvedilol 6.25 MG TAB PO SCH ×2 (08:08→21:36)
[2020-10-10] MEDS: Polyethylene Glycol 3350 17 GM Packet PO SCH ×2 (08:08→23:01)
[2020-10-10] MEDS: Senokot S 8.6-50 MG TAB PO SCH ×2 (08:08→21:36)
[2020-10-10] MEDS: Aspirin 81 mg Enteric Coated Tablet PO SCH (08:08)
[2020-10-10] MEDS ORDERED: Cefepime 2 GM VIAL ONE (11:53)
[2020-10-10] MEDS ORDERED: predniSONE 20 MG TAB ONE (11:53)
[2020-10-10] MEDS: Gabapentin 100 MG CAP PO PRN (16:34)
[2020-10-10] MEDS: Warfarin Sodium 3 MG TAB PO SCH (16:35)
[2020-10-10] MEDS: HumaLOG 300 UNITS/3 ML VIAL SC PRN (17:10)
[2020-10-10] MEDS: Acetaminophen 325 MG TAB PO PRN ×2 (18:11→21:37)
[2020-10-10] MEDS: Atorvastatin Calcium 40 MG TAB PO SCH (21:37)
[2020-10-11 04:40] LABS: INR-International Normal Ratio 2.2; Prothrombin Time 24.5 sec (12.0-14.7)
[2020-10-11] MEDS: Heparin 25,000 units/D5W 500 ML IV SCH (05:43)
[2020-10-11 06:03] LABS: PTT 123.5 sec (22.9-36.1)
[2020-10-11] MEDS: Amlodipine 5 MG TAB PO SCH (08:24)
[2020-10-11] MEDS: Aspirin 81 mg Enteric Coated Tablet PO SCH (08:25)
[2020-10-11] MEDS: Carvedilol 6.25 MG TAB PO SCH ×2 (08:25→20:08)
[2020-10-11] MEDS: Gabapentin 100 MG CAP PO PRN ×2 (08:25→15:54)
[2020-10-11] MEDS: Acetaminophen 325 MG TAB PO PRN ×2 (08:26→15:53)
[2020-10-11] MEDS: Senokot S 8.6-50 MG TAB PO SCH (08:29)
[2020-10-11] MEDS: Polyethylene Glycol 3350 17 GM Packet PO SCH (08:29)
[2020-10-11] MEDS: HYDROcodone/Acetaminophen 5/325 mg Tablet PO PRN ×2 (12:36→20:08)
[2020-10-11] MEDS: HumaLOG 300 UNITS/3 ML VIAL SC PRN ×2 (12:47→19:00)
[2020-10-11] MEDS: Warfarin Sodium 3 MG TAB PO SCH (15:52)
[2020-10-11] MEDS: Atorvastatin Calcium 40 MG TAB PO SCH (20:07)
[2020-10-12] MEDS: HumaLOG 300 UNITS/3 ML VIAL SC PRN ×2 (01:17→11:57)
[2020-10-12] MEDS: Polyethylene Glycol 3350 17 GM Packet PO SCH ×3 (03:38→20:02)
[2020-10-12] MEDS: Senokot S 8.6-50 MG TAB PO SCH ×3 (03:39→20:02)
[2020-10-12 04:56] LABS: #Eosinphils 0.5 thou/uL (0.0-0.7); #Lymphocytes 1.6 thou/uL (1.20-3.40); #Neutrophils 11.6 thou/uL (1.40-6.50); %Basophils 0.1 % (0.0-1.0); %Eosinophils 3.5 % (0.0-10.0); %Lymphocytes 10.7 % (21.0-51.0); %Monocytes 6.8 % (0.0-10.0); Hemoglobin 7.5 g/dL (14.0-18.0); Mean Corpuscular Hemoglobin 27.1 pg (27.0-31.0); Mean Corpuscular Volume 84.8 fL (78.0-98.0); Mean Platelet Volume 8.2 fL (7.4-10.4); Platelet Count 333 thou/uL (130-400); RBC Distribution Width 13.4 % (11.5-14.5); Red Blood Cell (RBC) Count 2.76 mill/uL (4.70-6.10); White Blood Cell (WBC) Count 14.7 thou/uL (4.8-10.8)
[2020-10-12 05:20] LABS: Anion Gap 11 mmol/L (10-20); BUN (Urea Nitrogen) 26 mg/dL (8.4-25.7); BUN/Creatinine Ratio 10.79; Calc. Creatinine Clearance 42 mL/min (70-130); Calcium 7.7 mg/dL (7.8-10.44); Carbon Dioxide 25 mmol/L (23-31); Chloride 102 mmol/L (98-107); Glucose 202 mg/dL (80-115); Phosphorus 3.3 mg/dL (2.3-4.7); Potassium 3.6 mmol/L (3.5-5.1); Sodium 134 mmol/L (136-145)
[2020-10-12] MEDS: Aspirin 81 mg Enteric Coated Tablet PO SCH (08:41)
[2020-10-12] MEDS: Carvedilol 6.25 MG TAB PO SCH ×2 (08:41→20:02)
[2020-10-12] MEDS: Amlodipine 5 MG TAB PO SCH (08:41)
[2020-10-12] MEDS: HYDROcodone/Acetaminophen 5/325 mg Tablet PO PRN ×2 (08:42→14:45)
[2020-10-12] MEDS: Acetaminophen 325 MG TAB PO PRN (11:56)
[2020-10-12] MEDS: Gabapentin 100 MG CAP PO PRN (11:57)
[2020-10-12] MEDS: Warfarin Sodium 3 MG TAB PO SCH (16:20)
[2020-10-12] MEDS: Atorvastatin Calcium 40 MG TAB PO SCH (20:02)
[2020-10-13 04:41] LABS: INR-International Normal Ratio 2.6; Prothrombin Time 28.7 sec (12.0-14.7)
[2020-10-13] MEDS: Polyethylene Glycol 3350 17 GM Packet PO SCH (08:46)
[2020-10-13] MEDS: Senokot S 8.6-50 MG TAB PO SCH (08:46)
[2020-10-13] MEDS: Carvedilol 6.25 MG TAB PO SCH (08:47)
[2020-10-13] MEDS: Amlodipine 5 MG TAB PO SCH (08:47)
[2020-10-13] MEDS: Aspirin 81 mg Enteric Coated Tablet PO SCH (08:47)
[2020-10-13 12:48] VITALS: BP 141/65; TEMP 97.9
== END 2020-10-13 13:15 | DRG 208 ==
LOC: ERS 06:45 → CCU 08:59 → UNDOADMIN 08:59 → CCU 11:00 → 2NO 10-05 13:30
PROVIDERS: ADMIT Internal Medicine; ATTEND Hospitalist
PROC: 5A1945Z Respiratory Ventilation, 24-96 Consecutive Hours (ICD-10-PCS; principal; 2020-10-01)
PROC: 3E03317 Introduction of Other Thrombolytic into Peripheral Vein, Percutaneous Approach (ICD-10-PCS; 2020-10-01)
PROC: 03HY32Z Insertion of Monitoring Device into Upper Artery, Percutaneous Approach (ICD-10-PCS; 2020-10-01)
PROC: 0BH17EZ Insertion of Endotracheal Airway into Trachea, Via Natural or Artificial Opening (ICD-10-PCS; 2020-10-01)
PROC: 06HY33Z Insertion of Infusion Device into Lower Vein, Percutaneous Approach (ICD-10-PCS; 2020-10-01)
PROC: 0BH17EZ Insertion of Endotracheal Airway into Trachea, Via Natural or Artificial Opening (ICD-10-PCS; 2020-10-01)
PROC: 5A12012 Performance of Cardiac Output, Single, Manual (ICD-10-PCS; 2020-10-01)
PROC: 0D9670Z Drainage of Stomach with Drainage Device, Via Natural or Artificial Opening (ICD-10-PCS; 2020-10-01)
PROC: 3E033XZ Introduction of Vasopressor into Peripheral Vein, Percutaneous Approach (ICD-10-PCS; 2020-10-01)
DX: I26.94 Multiple subsegmental thrombotic pulmonary emboli without acute cor pulmonale (principal); I46.8 Cardiac arrest due to other underlying condition; I21.A1 Myocardial infarction type 2; J96.01 Acute respiratory failure with hypoxia; J69.0 Pneumonitis due to inhalation of food and vomit; G93.41 Metabolic encephalopathy; N17.9 Acute kidney failure, unspecified; I50.22 Chronic systolic (congestive) heart failure; I13.0 Hypertensive heart and chronic kidney disease with heart failure and stage 1 through stage 4 chronic kidney disease, or unspecified chronic kidney disease; D68.32 Hemorrhagic disorder due to extrinsic circulating anticoagulants; F05 Delirium due to known physiological condition; L76.32 Postprocedural hematoma of skin and subcutaneous tissue following other procedure; I82.431 Acute embolism and thrombosis of right popliteal vein; Z20.822 Contact with and (suspected) exposure to COVID-19; E11.22 Type 2 diabetes mellitus with diabetic chronic kidney disease; E11.649 Type 2 diabetes mellitus with hypoglycemia without coma; I25.10 Atherosclerotic heart disease of native coronary artery without angina pectoris; E78.5 Hyperlipidemia, unspecified; E11.51 Type 2 diabetes mellitus with diabetic peripheral angiopathy without gangrene; Z89.512 Acquired absence of left leg below knee; Z95.1 Presence of aortocoronary bypass graft; Z79.01 Long term (current) use of anticoagulants; Z79.51 Long term (current) use of inhaled steroids; Z79.899 Other long term (current) drug therapy; Z79.4 Long term (current) use of insulin; Z82.49 Family history of ischemic heart disease and other diseases of the circulatory system; Z78.1 Physical restraint status; Z86.73 Personal history of transient ischemic attack (TIA), and cerebral infarction without residual deficits; D63.1 Anemia in chronic kidney disease; E87.70 Fluid overload, unspecified; E87.6 Hypokalemia; K59.00 Constipation, unspecified; T45.525A Adverse effect of antithrombotic drugs, initial encounter; N18.32 Chronic kidney disease, stage 3b; Y84.8 Other medical procedures as the cause of abnormal reaction of the patient, or of later complication, without mention of misadventure at the time of the procedure
CPT/HCPCS: 31500; 36415; 36416; 36556; 36600; 70450; 70551; 71045; 71275; 80048; 80053; 80061; 80069; 81003; 81015; 82140; 82553; 82805; 83036; 83605; 83735; 83880; 84100; 84443; 84484; 85025; 85049; 85300; 85362; 85379; 85384; 85610; 85730; 86850; 86900; 86901; 87040; 87070; 87086; 87205; 87635; 92950; 93005; 93306; 93798; 93923; 94002; 94003; 94640; 94760; 96365; 96374; 96375; 96376; 99292; C9113; J0171; J0360; J1644; J1815; J1956; J2060; J2543; J2704; J2997; J3490; J7620; Q9967; U0003; U0005

== ENCOUNTER 2020-10-15 20:05 | Inpatient (IN) | payer MEDICARE ==
[2020-10-15 20:37] LABS: #Basophils 0.1 thou/uL (0.0-0.2); #Eosinphils 0.3 thou/uL (0.0-0.7); #Lymphocytes 1.3 thou/uL (1.20-3.40); #Neutrophils 14.4 thou/uL (1.40-6.50); %Basophils 0.3 % (0.0-1.0); %Eosinophils 1.8 % (0.0-10.0); %Lymphocytes 7.6 % (21.0-51.0); %Monocytes 5.9 % (0.0-10.0); %Neutrophils 84.4 % (42.0-75.0); Hemoglobin 7.4 g/dL (14.0-18.0); Mean Corpuscular HGB CONC 32.5 g/dL (32.0-36.0); Mean Corpuscular Hemoglobin 27.6 pg (27.0-31.0); Mean Corpuscular Volume 84.8 fL (78.0-98.0); Mean Platelet Volume 7.6 fL (7.4-10.4); Platelet Count 465 thou/uL (130-400); RBC Distribution Width 13.4 % (11.5-14.5); Red Blood Cell (RBC) Count 2.67 mill/uL (4.70-6.10); White Blood Cell (WBC) Count 17.1 thou/uL (4.8-10.8)
[2020-10-15 21:06] LABS: ALT (SGPT) 26 U/L (8-55); AST (SGOT) 25 U/L (5-34); Albumin 2.4 g/dL (3.4-4.8); Alkaline Phosphatase 143 U/L (40-110); Anion Gap 11 mmol/L (10-20); BUN (Urea Nitrogen) 27 mg/dL (8.4-25.7); Bilirubin, Total 0.3 mg/dL (0.2-1.2); Calc. Creatinine Clearance 0 mL/min (70-130); Calcium 8.4 mg/dL (7.8-10.44); Carbon Dioxide 26 mmol/L (23-31); Chloride 102 mmol/L (98-107); Globulin 3.8 g/dL (2.4-3.5); Glucose 241 mg/dL (80-115); Potassium 4.3 mmol/L (3.5-5.1); Protein, Total 6.2 g/dL (5.8-8.1); Sodium 135 mmol/L (136-145)
[2020-10-15] MEDS ORDERED: Cefepime 2 GM VIAL ONE (21:46)
[2020-10-15] MEDS ORDERED: Vancomycin 1 GM/200 ML BAG ONE (21:46)
[2020-10-15] MEDS ORDERED: Sodium Chloride 0.9% 1,000 ML IV SCH (23:30)
[2020-10-16 00:15] VITALS: BMI 29.8
[2020-10-16] MEDS ORDERED: Ondansetron PF 4 MG/2 ML Vial IVP PRN (01:50)
[2020-10-16] MEDS ORDERED: Acetaminophen 325 MG TAB PO PRN (01:50)
[2020-10-16] MEDS ORDERED: Heparin 10,000 UNITS/ 10 ML VIAL SLOW IVP SCH (02:00)
[2020-10-16] MEDS ORDERED: Heparin 25,000 units/D5W 500 ML IVPB SCH (02:00)
[2020-10-16] MEDS ORDERED: Sodium Chloride 0.9% 1,000 ML IV SCH (02:00)
[2020-10-16] MEDS ORDERED: Dextrose 50% Abboject 50 ML SYRINGE SLOW IVP PRN (02:04)
[2020-10-16] MEDS ORDERED: Dextrose 5% in Water 1,000 ML IV PRN (02:04)
[2020-10-16 02:29] LABS: #Basophils 0.1 thou/uL (0.0-0.2); #Eosinphils 0.2 thou/uL (0.0-0.7); #Lymphocytes 1.5 thou/uL (1.20-3.40); #Neutrophils 12.2 thou/uL (1.40-6.50); %Basophils 0.4 % (0.0-1.0); %Eosinophils 1.7 % (0.0-10.0); %Monocytes 6.8 % (0.0-10.0); %Neutrophils 81.1 % (42.0-75.0); Hemoglobin 6.4 g/dL (14.0-18.0); Mean Corpuscular HGB CONC 31.9 g/dL (32.0-36.0); Mean Corpuscular Hemoglobin 27.1 pg (27.0-31.0); Mean Corpuscular Volume 85.1 fL (78.0-98.0); Mean Platelet Volume 7.5 fL (7.4-10.4); Platelet Count 377 thou/uL (130-400); RBC Distribution Width 13.5 % (11.5-14.5); Red Blood Cell (RBC) Count 2.36 mill/uL (4.70-6.10)
[2020-10-16] MEDS: MEROPENEM 1 GM/50 ML 1 GM in Premix Bag 1 BAG IVPB SCH ×2 (02:32→16:31)
[2020-10-16 02:33] LABS: Hemoglobin 6.5 g/dL (14.0-18.0); Platelet Count 363 thou/uL (130-400)
[2020-10-16 02:53] LABS: Troponin I 0.037 ng/mL (< 0.028)
[2020-10-16 02:58] LABS: Anion Gap 9 mmol/L (10-20); BUN (Urea Nitrogen) 27 mg/dL (8.4-25.7); Calc. Creatinine Clearance 50 mL/min (70-130); Calcium 7.7 mg/dL (7.8-10.44); Carbon Dioxide 23 mmol/L (23-31); Chloride 107 mmol/L (98-107); Glucose 240 mg/dL (80-115); Potassium 4.4 mmol/L (3.5-5.1); Sodium 135 mmol/L (136-145)
[2020-10-16 04:44] LABS: SARS-CoV-2 PCR by NAA Not Detected (NotDetected)
[2020-10-16 05:51] LABS: Troponin I 0.043 ng/mL (< 0.028)
[2020-10-16 08:21] LABS: Glucose 231 mg/dL (80-115)
[2020-10-16 08:31] LABS: Troponin I 0.061 ng/mL (< 0.028)
[2020-10-16 08:39] LABS: PTT Greater than 250.0 sec (22.9-36.1)
[2020-10-16 09:56] LABS: PTT Greater than 250.0 sec (22.9-36.1)
[2020-10-16] MEDS ORDERED: Bisacodyl 10 MG SUPP PR PRN (15:06)
[2020-10-16] MEDS ORDERED: Dicyclomine 10 MG CAP PO PRN (15:07)
[2020-10-16] MEDS ORDERED: Furosemide 40 MG/4 ML VIAL SLOW IVP SCH (15:30)
[2020-10-16] MEDS ORDERED: VANCOMYCIN 1.25 GM/250 ML BAG 1.25 GM in Premix Bag 1 BAG IVPB SCH (18:00)
[2020-10-16] MEDS: Docusate 100 MG CAP PO SCH (20:31)
[2020-10-16] MEDS ORDERED: hydrALAZINE 20 MG/ML VIAL SLOW IVP PRN (21:44)
[2020-10-16] MEDS ORDERED: Polyethylene Glycol 3350 17 GM Packet PO SCH (22:15)
[2020-10-17] MEDS: MEROPENEM 1 GM/50 ML 1 GM in Premix Bag 1 BAG IVPB SCH ×2 (04:01→17:48)
[2020-10-17 06:39] LABS: #Basophils 0.1 thou/uL (0.0-0.2); #Eosinphils 0.1 thou/uL (0.0-0.7); #Lymphocytes 1.2 thou/uL (1.20-3.40); #Monocytes 1.4 thou/uL (0.11-0.59); #Neutrophils 15.6 thou/uL (1.40-6.50); %Basophils 0.3 % (0.0-1.0); %Eosinophils 0.5 % (0.0-10.0); %Lymphocytes 6.6 % (21.0-51.0); %Monocytes 7.4 % (0.0-10.0); %Neutrophils 85.2 % (42.0-75.0); Hemoglobin 9.5 g/dL (14.0-18.0); Mean Corpuscular HGB CONC 32.9 g/dL (32.0-36.0); Mean Corpuscular Hemoglobin 28.3 pg (27.0-31.0); Mean Platelet Volume 7.7 fL (7.4-10.4); Platelet Count 445 thou/uL (130-400); RBC Distribution Width 13.6 % (11.5-14.5); Red Blood Cell (RBC) Count 3.36 mill/uL (4.70-6.10); White Blood Cell (WBC) Count 18.3 thou/uL (4.8-10.8)
[2020-10-17 06:58] LABS: Albumin 2.3 g/dL (3.4-4.8); Anion Gap 14 mmol/L (10-20); BUN (Urea Nitrogen) 32 mg/dL (8.4-25.7); BUN/Creatinine Ratio 13.68; Calc. Creatinine Clearance 46 mL/min (70-130); Carbon Dioxide 21 mmol/L (23-31); Chloride 106 mmol/L (98-107); Glucose 280 mg/dL (80-115); Iron 26 ug/dL (65-175); Iron Binding Capacity, Total 136 mcg/dL (261-462); Phosphorus 4.3 mg/dL (2.3-4.7); Potassium 4.8 mmol/L (3.5-5.1); Sodium 136 mmol/L (136-145)
[2020-10-17] MEDS: Docusate 100 MG CAP PO SCH ×2 (09:04→22:40)
[2020-10-17] MEDS ORDERED: Furosemide 40 MG/4 ML VIAL SLOW IVP SCH (13:15)
[2020-10-17] MEDS ORDERED: Fentanyl 100 MCG/2 ML VIAL ONE (15:20)
[2020-10-17] MEDS ORDERED: PROPOFOL 200 MG/20 ML VIAL ONE (15:30)
[2020-10-17] MEDS ORDERED: Glycopyrrolate 0.2 MG/ML 5 ML SYRINGE ONE (15:30)
[2020-10-17] MEDS ORDERED: Ondansetron PF 4 MG/2 ML Vial ONE (15:30)
[2020-10-17] MEDS ORDERED: Rocuronium Bromide 10 MG/ML (10ML VIAL) ONE (15:30)
[2020-10-17] MEDS ORDERED: Vancomycin HCl 1.25 GM in Sodium Chloride 0.9% 250 ML 250 ML IVPB SCH (18:00)
[2020-10-17] MEDS ORDERED: traMADol HCl 50 MG TAB PO PRN (18:13)
[2020-10-17] MEDS: HumaLOG 300 UNITS/3 ML VIAL SC PRN ×2 (18:30→22:54)
[2020-10-17] MEDS: traMADol HCl 50 MG TAB PO PRN (19:16)
[2020-10-17] MEDS: Morphine 4 MG/ML VIAL SLOW IVP PRN (22:39)
[2020-10-17] MEDS: Polyethylene Glycol 3350 17 GM Packet PO SCH (22:40)
[2020-10-18] MEDS: MEROPENEM 1 GM/50 ML 1 GM in Premix Bag 1 BAG IVPB SCH ×2 (04:03→15:14)
[2020-10-18 04:06] LABS: #Basophils 0.1 thou/uL (0.0-0.2); #Eosinphils 0.2 thou/uL (0.0-0.7); #Lymphocytes 1.4 thou/uL (1.20-3.40); #Monocytes 1.4 thou/uL (0.11-0.59); %Basophils 0.6 % (0.0-1.0); %Eosinophils 1.5 % (0.0-10.0); %Lymphocytes 9.3 % (21.0-51.0); %Neutrophils 79.7 % (42.0-75.0); Hemoglobin 9.5 g/dL (14.0-18.0); Mean Corpuscular HGB CONC 32.7 g/dL (32.0-36.0); Mean Corpuscular Hemoglobin 28.5 pg (27.0-31.0); Mean Platelet Volume 7.9 fL (7.4-10.4); Platelet Count 462 thou/uL (130-400); Red Blood Cell (RBC) Count 3.33 mill/uL (4.70-6.10); White Blood Cell (WBC) Count 15.1 thou/uL (4.8-10.8)
[2020-10-18 04:09] LABS: Albumin 2.3 g/dL (3.4-4.8); Anion Gap 14 mmol/L (10-20); BUN (Urea Nitrogen) 34 mg/dL (8.4-25.7); BUN/Creatinine Ratio 14.05; Calc. Creatinine Clearance 44 mL/min (70-130); Carbon Dioxide 22 mmol/L (23-31); Chloride 108 mmol/L (98-107); Glucose 220 mg/dL (80-115); Phosphorus 4.1 mg/dL (2.3-4.7); Potassium 4.7 mmol/L (3.5-5.1); Sodium 139 mmol/L (136-145)
[2020-10-18] MEDS: Morphine 4 MG/ML VIAL SLOW IVP PRN ×5 (05:04→21:17)
[2020-10-18] MEDS: HumaLOG 300 UNITS/3 ML VIAL SC PRN ×2 (06:40→15:13)
[2020-10-18] MEDS: Docusate 100 MG CAP PO SCH ×2 (09:48→21:19)
[2020-10-18] MEDS: traMADol HCl 50 MG TAB PO PRN (12:00)
[2020-10-18 17:35] LABS: Vancomycin, Trough 17.8 ug/mL
[2020-10-18] MEDS ORDERED: VANCOMYCIN 1.25 GM/250 ML BAG 1.25 GM in Premix Bag 1 BAG IVPB SCH (18:00)
[2020-10-18] MEDS: Polyethylene Glycol 3350 17 GM Packet PO SCH (21:19)
[2020-10-19] MEDS: MEROPENEM 1 GM/50 ML 1 GM in Premix Bag 1 BAG IVPB SCH (03:59)
[2020-10-19] MEDS: Morphine 4 MG/ML VIAL SLOW IVP PRN ×4 (03:59→19:59)
[2020-10-19 07:56] LABS: #Basophils 0.1 thou/uL (0.0-0.2); #Eosinphils 0.7 thou/uL (0.0-0.7); #Lymphocytes 1.2 thou/uL (1.20-3.40); #Monocytes 1.2 thou/uL (0.11-0.59); #Neutrophils 13.9 thou/uL (1.40-6.50); %Basophils 0.3 % (0.0-1.0); %Eosinophils 3.8 % (0.0-10.0); %Lymphocytes 7.1 % (21.0-51.0); %Monocytes 7.2 % (0.0-10.0); %Neutrophils 81.6 % (42.0-75.0); Hemoglobin 9.6 g/dL (14.0-18.0); Mean Corpuscular HGB CONC 31.9 g/dL (32.0-36.0); Mean Corpuscular Hemoglobin 27.5 pg (27.0-31.0); Mean Corpuscular Volume 86.2 fL (78.0-98.0); Mean Platelet Volume 7.4 fL (7.4-10.4); Platelet Count 436 thou/uL (130-400); RBC Distribution Width 14.3 % (11.5-14.5); White Blood Cell (WBC) Count 17.1 thou/uL (4.8-10.8)
[2020-10-19 08:17] LABS: Albumin 2.2 g/dL (3.4-4.8); Anion Gap 15 mmol/L (10-20); BUN (Urea Nitrogen) 35 mg/dL (8.4-25.7); BUN/Creatinine Ratio 16.36; Calc. Creatinine Clearance 50 mL/min (70-130); Carbon Dioxide 19 mmol/L (23-31); Chloride 108 mmol/L (98-107); Glucose 173 mg/dL (80-115); Phosphorus 3.6 mg/dL (2.3-4.7); Potassium 4.5 mmol/L (3.5-5.1); Sodium 137 mmol/L (136-145)
[2020-10-19] MEDS: traMADol HCl 50 MG TAB PO PRN (08:27)
[2020-10-19] MEDS: Docusate 100 MG CAP PO SCH ×2 (08:27→19:58)
[2020-10-19] MEDS: HumaLOG 300 UNITS/3 ML VIAL SC PRN ×3 (11:06→20:04)
[2020-10-19] MEDS ORDERED: Lidocaine 5% Patch TD SCH (12:00)
[2020-10-19] MEDS ORDERED: Ketorolac Tromethamine 30 MG/ML VIAL IVP PRN (14:46)
[2020-10-19] MEDS: Lidocaine 5% Patch TD SCH (17:08)
[2020-10-19] MEDS: Apixaban 5 MG TAB PO SCH (19:58)
[2020-10-19] MEDS: Polyethylene Glycol 3350 17 GM Packet PO SCH (19:59)
[2020-10-20] MEDS: Morphine 4 MG/ML VIAL SLOW IVP PRN ×5 (04:48→21:48)
[2020-10-20] MEDS: Transdermal Patch Removal TOP SCH (04:49)
[2020-10-20] MEDS: Furosemide 40 MG/4 ML VIAL SLOW IVP SCH ×2 (06:29→13:17)
[2020-10-20] MEDS: HumaLOG 300 UNITS/3 ML VIAL SC PRN ×3 (06:29→20:32)
[2020-10-20 07:56] LABS: #Basophils 0.1 thou/uL (0.0-0.2); #Eosinphils 0.6 thou/uL (0.0-0.7); #Lymphocytes 1.2 thou/uL (1.20-3.40); #Monocytes 1.4 thou/uL (0.11-0.59); #Neutrophils 12.9 thou/uL (1.40-6.50); %Basophils 0.4 % (0.0-1.0); %Eosinophils 3.7 % (0.0-10.0); %Lymphocytes 7.4 % (21.0-51.0); %Monocytes 8.6 % (0.0-10.0); %Neutrophils 79.9 % (42.0-75.0); Hemoglobin 9.4 g/dL (14.0-18.0); Mean Corpuscular HGB CONC 30.4 g/dL (32.0-36.0); Mean Corpuscular Hemoglobin 26.3 pg (27.0-31.0); Mean Corpuscular Volume 86.6 fL (78.0-98.0); Mean Platelet Volume 7.6 fL (7.4-10.4); Platelet Count 526 thou/uL (130-400); RBC Distribution Width 14.6 % (11.5-14.5); Red Blood Cell (RBC) Count 3.58 mill/uL (4.70-6.10); White Blood Cell (WBC) Count 16.1 thou/uL (4.8-10.8)
[2020-10-20 08:22] LABS: Albumin 2.2 g/dL (3.4-4.8); Anion Gap 12 mmol/L (10-20); BUN (Urea Nitrogen) 34 mg/dL (8.4-25.7); BUN/Creatinine Ratio 16.83; Calc. Creatinine Clearance 53 mL/min (70-130); Calcium 8.6 mg/dL (7.8-10.44); Carbon Dioxide 23 mmol/L (23-31); Chloride 106 mmol/L (98-107); Glucose 211 mg/dL (80-115); Phosphorus 3.2 mg/dL (2.3-4.7); Potassium 4.4 mmol/L (3.5-5.1); Sodium 137 mmol/L (136-145)
[2020-10-20] MEDS: Apixaban 5 MG TAB PO SCH ×2 (08:52→20:29)
[2020-10-20] MEDS: Docusate 100 MG CAP PO SCH ×2 (08:52→20:30)
[2020-10-20] MEDS: traMADol HCl 50 MG TAB PO PRN (11:45)
[2020-10-20] MEDS: Lidocaine 5% Patch TD SCH (15:34)
[2020-10-20] MEDS: hydrALAZINE 25 MG TAB PO SCH ×2 (15:34→20:29)
[2020-10-20] MEDS: Polyethylene Glycol 3350 17 GM Packet PO SCH (20:30)
[2020-10-20] MEDS ORDERED: Carvedilol 6.25 MG TAB PO SCH (21:00)
[2020-10-21] MEDS: traMADol HCl 50 MG TAB PO PRN (04:15)
[2020-10-21] MEDS: Transdermal Patch Removal TOP SCH (05:59)
[2020-10-21] MEDS: HumaLOG 300 UNITS/3 ML VIAL SC PRN ×2 (06:27→17:09)
[2020-10-21] MEDS: Furosemide 40 MG/4 ML VIAL SLOW IVP SCH ×2 (06:27→12:55)
[2020-10-21] MEDS: Morphine 4 MG/ML VIAL SLOW IVP PRN ×2 (06:33→17:07)
[2020-10-21] MEDS ORDERED: Carvedilol 6.25 MG TAB PO SCH (09:00)
[2020-10-21] MEDS: Aspirin 81 mg Enteric Coated Tablet PO SCH (09:06)
[2020-10-21] MEDS: hydrALAZINE 25 MG TAB PO SCH ×3 (09:06→20:52)
[2020-10-21] MEDS: Losartan 25 MG TAB PO SCH (09:06)
[2020-10-21] MEDS: Amlodipine 10 MG TAB PO SCH (09:06)
[2020-10-21] MEDS: Apixaban 5 MG TAB PO SCH ×2 (09:06→20:51)
[2020-10-21] MEDS: Docusate 100 MG CAP PO SCH ×2 (09:06→20:52)
[2020-10-21 13:47] LABS: Mean Corpuscular HGB CONC 31.8 g/dL (32.0-36.0); Mean Corpuscular Hemoglobin 27.3 pg (27.0-31.0); Mean Corpuscular Volume 85.7 fL (78.0-98.0); Mean Platelet Volume 7.5 fL (7.4-10.4); Platelet Count 461 thou/uL (130-400); RBC Distribution Width 14.5 % (11.5-14.5)
[2020-10-21 14:03] LABS: ALT (SGPT) 17 U/L (8-55); AST (SGOT) 29 U/L (5-34); Albumin 1.9 g/dL (3.4-4.8); Alkaline Phosphatase 88 U/L (40-110); Anion Gap 11 mmol/L (10-20); BUN (Urea Nitrogen) 30 mg/dL (8.4-25.7); Bilirubin, Total 0.4 mg/dL (0.2-1.2); Calc. Creatinine Clearance 55 mL/min (70-130); Calcium 8.2 mg/dL (7.8-10.44); Carbon Dioxide 27 mmol/L (23-31); Chloride 102 mmol/L (98-107); Globulin 3.6 g/dL (2.4-3.5); Glucose 213 mg/dL (80-115); Potassium 4.5 mmol/L (3.5-5.1); Protein, Total 5.5 g/dL (5.8-8.1); Sodium 135 mmol/L (136-145)
[2020-10-21] MEDS: Lidocaine 5% Patch TD SCH (17:08)
[2020-10-21] MEDS: Carvedilol 6.25 MG TAB PO SCH (17:08)
[2020-10-21] MEDS: Polyethylene Glycol 3350 17 GM Packet PO SCH (20:53)
[2020-10-22 04:39] LABS: Hemoglobin 8.7 g/dL (14.0-18.0); Mean Corpuscular HGB CONC 30.8 g/dL (32.0-36.0); Mean Corpuscular Hemoglobin 26.5 pg (27.0-31.0); Mean Corpuscular Volume 86.1 fL (78.0-98.0); Platelet Count 420 thou/uL (130-400); RBC Distribution Width 14.4 % (11.5-14.5); Red Blood Cell (RBC) Count 3.28 mill/uL (4.70-6.10); White Blood Cell (WBC) Count 13.2 thou/uL (4.8-10.8)
[2020-10-22 04:45] LABS: Anion Gap 11 mmol/L (10-20); BUN (Urea Nitrogen) 31 mg/dL (8.4-25.7); Calc. Creatinine Clearance 57 mL/min (70-130); Calcium 8.5 mg/dL (7.8-10.44); Carbon Dioxide 25 mmol/L (23-31); Chloride 103 mmol/L (98-107); Glucose 203 mg/dL (80-115); Potassium 4.1 mmol/L (3.5-5.1); Sodium 135 mmol/L (136-145)
[2020-10-22] MEDS: Transdermal Patch Removal TOP SCH (04:48)
[2020-10-22] MEDS: HumaLOG 300 UNITS/3 ML VIAL SC PRN ×4 (06:30→20:33)
[2020-10-22] MEDS: Docusate 100 MG CAP PO SCH ×2 (09:28→20:25)
[2020-10-22] MEDS: Losartan 25 MG TAB PO SCH (09:28)
[2020-10-22] MEDS: Carvedilol 6.25 MG TAB PO SCH ×2 (09:28→16:32)
[2020-10-22] MEDS: Aspirin 81 mg Enteric Coated Tablet PO SCH (09:29)
[2020-10-22] MEDS: hydrALAZINE 25 MG TAB PO SCH ×3 (09:29→20:25)
[2020-10-22] MEDS: Apixaban 5 MG TAB PO SCH ×2 (09:29→20:25)
[2020-10-22] MEDS: Amlodipine 10 MG TAB PO SCH (09:29)
[2020-10-22] MEDS: Furosemide 20 MG TAB PO SCH ×2 (09:29→13:56)
[2020-10-22] MEDS: Lidocaine 5% Patch TD SCH (16:34)
[2020-10-22 16:36] VITALS: TEMP 97.8
[2020-10-22] MEDS: traMADol HCl 50 MG TAB PO PRN (18:13)
[2020-10-22] MEDS: Polyethylene Glycol 3350 17 GM Packet PO SCH (20:26)
[2020-10-22 20:27] VITALS: BP 150/66
== END 2020-10-22 20:54 | DRG 854 ==
LOC: ERS 20:05 → SURG A 21:53 → 2NO 10-16 09:09
PROVIDERS: ADMIT Internal Medicine; ATTEND Internal Medicine
PROC: 30233N1 Transfusion of Nonautologous Red Blood Cells into Peripheral Vein, Percutaneous Approach (ICD-10-PCS; 2020-10-16)
PROC: 0Y6H0Z1 Detachment at Right Lower Leg, High, Open Approach (ICD-10-PCS; principal; 2020-10-17)
DX: A41.9 Sepsis, unspecified organism (principal); E11.52 Type 2 diabetes mellitus with diabetic peripheral angiopathy with gangrene; I13.0 Hypertensive heart and chronic kidney disease with heart failure and stage 1 through stage 4 chronic kidney disease, or unspecified chronic kidney disease; I50.42 Chronic combined systolic (congestive) and diastolic (congestive) heart failure; J96.11 Chronic respiratory failure with hypoxia; N17.9 Acute kidney failure, unspecified; I25.10 Atherosclerotic heart disease of native coronary artery without angina pectoris; E78.5 Hyperlipidemia, unspecified; R07.89 Other chest pain; E11.22 Type 2 diabetes mellitus with diabetic chronic kidney disease; N18.30 Chronic kidney disease, stage 3 unspecified; D63.1 Anemia in chronic kidney disease; Z20.822 Contact with and (suspected) exposure to COVID-19; Z86.718 Personal history of other venous thrombosis and embolism; Z86.711 Personal history of pulmonary embolism; Z79.82 Long term (current) use of aspirin; Z79.01 Long term (current) use of anticoagulants; Z95.1 Presence of aortocoronary bypass graft; Z89.512 Acquired absence of left leg below knee; Z86.74 Personal history of sudden cardiac arrest
CPT/HCPCS: 36415; 36416; 36430; 71045; 74018; 80048; 80053; 80069; 80202; 82728; 83540; 83550; 83605; 84484; 85025; 85027; 85652; 85730; 86140; 86850; 86900; 86901; 87635; 88307; 88311; 93005; 93010; 96374; J0360; J0692; J1644; J1815; J1885; J1940; J2185; J2270; J2405; J2704; J3010; J3370; J7050; P9016; U0003; U0005

== ENCOUNTER 2020-11-24 05:20 | Inpatient (IN) | payer MEDICARE ==
[2020-11-24] MEDS ORDERED: Dextrose 50% Abboject 50 ML SYRINGE ONE ×3 (06:30→18:58)
[2020-11-24 07:34] LABS: Hemoglobin 9.1 g/dL (14.0-18.0); Mean Corpuscular HGB CONC 31.9 g/dL (32.0-36.0); Mean Corpuscular Hemoglobin 26.5 pg (27.0-31.0); Platelet Count 338 thou/uL (130-400); Red Blood Cell (RBC) Count 3.45 mill/uL (4.70-6.10); White Blood Cell (WBC) Count 21.6 thou/uL (4.8-10.8)
[2020-11-24 07:42] LABS: ALT (SGPT) 33 U/L (8-55); AST (SGOT) 19 U/L (5-34); Albumin 2.2 g/dL (3.4-4.8); Alkaline Phosphatase 94 U/L (40-110); Anion Gap 9 mmol/L (10-20); BUN (Urea Nitrogen) 28 mg/dL (8.4-25.7); Bilirubin, Total 0.3 mg/dL (0.2-1.2); Calc. Creatinine Clearance 0 mL/min (70-130); Calcium 8.4 mg/dL (7.8-10.44); Carbon Dioxide 23 mmol/L (23-31); Chloride 111 mmol/L (98-107); Globulin 3.7 g/dL (2.4-3.5); Glucose 121 mg/dL (80-115); Potassium 3.4 mmol/L (3.5-5.1); Protein, Total 5.9 g/dL (5.8-8.1); Sodium 140 mmol/L (136-145)
[2020-11-24 07:51] LABS: Band 1 % (5-11); Eosinophils 2 % (0-10); Lymphocytes 9 % (21-51); MDiff Complete? YES; Monocytes 4 % (0-10); Myelocyte 2 % (0-0); Neutrophil 82 % (42-75); Platelet Morphology Comment Appears Adequate; RBC Morphology Normal
[2020-11-24] MEDS ORDERED: Vancomycin 1 GM in Premix Bag 1 BAG IVPB SCH (08:15)
[2020-11-24] MEDS ORDERED: Dextrose 10% in Water 1,000 ML IV SCH ×2 (08:30→19:15)
[2020-11-24] MEDS ORDERED: Dextrose 5 % And 0.9 % NaCl 1,000 ML IV SCH ×2 (09:00→16:21)
[2020-11-24 09:06] LABS: Lactic Acid 0.8 mmol/L (0.5-2.2)
[2020-11-24 09:16] LABS: Troponin I 0.029 ng/mL (< 0.028)
[2020-11-24 09:23] LABS: Bilirubin Negative (Negative); Blood, Urine Moderate (Negative); Clarity Hazy (Clear); Glucose, Urine (Dipstick) 100 mg/dL (Negative); Ketone, Urine Negative (Negative); Leukocyte Trace (Negative); Nitrite Negative (Negative); Protein, Urine (Dipstick) > or equal to 300 mg/dL (Neg-Trace); Specific Gravity, Urine 1.025 (1.005-1.030); Urobilinogen 0.2 mg/dL (Less than 2); pH, Urine 5.5 (5.0-9.0)
[2020-11-24 09:26] LABS: Squamous Epithelial None Seen HPF (0-3); Yeast-Budding 1+ HPF (None Seen)
[2020-11-24 09:40] LABS: Bacteria/HPF 1+ HPF (None Seen)
[2020-11-24 09:43] LABS: Yeast-Hyphae 1+ HPF (None Seen)
[2020-11-24] MEDS ORDERED: Calcium Carbonate 500 MG ChewTAB PO PRN (10:40)
[2020-11-24] MEDS ORDERED: Ondansetron ODT 4 MG TAB PO PRN (10:40)
[2020-11-24] MEDS ORDERED: Ondansetron PF 4 MG/2 ML Vial IVP PRN (10:40)
[2020-11-24] MEDS ORDERED: Furosemide 40 MG TAB PO SCH (10:45)
[2020-11-24] MEDS ORDERED: Clopidogrel Bisulfate 75 MG TAB PO SCH (10:45)
[2020-11-24] MEDS ORDERED: Apixaban 5 MG TAB PO SCH (10:45)
[2020-11-24] MEDS ORDERED: Nitroglycerin 0.4 MG TAB (25 Tab Bottle) SL PRN (10:50)
[2020-11-24] MEDS: Cefepime 2 GM in Sodium Chloride 0.9% 100 ML IVPB SCH ×2 (10:56→21:55)
[2020-11-24] MEDS ORDERED: Potassium Chloride 20 MEQ TAB PO SCH (11:00)
[2020-11-24] MEDS ORDERED: Carvedilol 25 MG TAB PO SCH ×2 (11:00→17:00)
[2020-11-24] MEDS ORDERED: Aspirin 81 mg Enteric Coated Tablet PO SCH (11:00)
[2020-11-24] MEDS ORDERED: Lisinopril 20 MG TAB PO SCH (11:00)
[2020-11-24 11:10] LABS: Troponin I 0.031 ng/mL (< 0.028)
[2020-11-24] MEDS ORDERED: HYDROcodone/Acetaminophen 5/325 mg Tablet PO PRN (13:17)
[2020-11-24] MEDS: Morphine 2 MG/ML VIAL SLOW IVP PRN ×2 (15:53→19:58)
[2020-11-24] MEDS: Carvedilol 6.25 MG TAB PO SCH (17:59)
[2020-11-24] MEDS: Linezolid 600 MG TAB PO SCH (21:56)
[2020-11-24] MEDS: Polyethylene Glycol 3350 17 GM Packet PO SCH (21:57)
[2020-11-24] MEDS: Atorvastatin Calcium 40 MG TAB PO SCH (21:57)
[2020-11-24] MEDS: Senokot S 8.6-50 MG TAB PO SCH (21:57)
[2020-11-24] MEDS: Apixaban 5 MG TAB PO SCH (21:57)
[2020-11-25 06:28] LABS: Hemoglobin 8.2 g/dL (14.0-18.0); Mean Corpuscular HGB CONC 32.4 g/dL (32.0-36.0); Mean Corpuscular Hemoglobin 26.9 pg (27.0-31.0); Mean Platelet Volume 8.4 fL (7.4-10.4); Platelet Count 288 thou/uL (130-400); Red Blood Cell (RBC) Count 3.04 mill/uL (4.70-6.10); White Blood Cell (WBC) Count 19.5 thou/uL (4.8-10.8)
[2020-11-25 06:48] LABS: ALT (SGPT) 30 U/L (8-55); AST (SGOT) 25 U/L (5-34); Alkaline Phosphatase 85 U/L (40-110); Anion Gap 10 mmol/L (10-20); BUN (Urea Nitrogen) 24 mg/dL (8.4-25.7); Bilirubin, Total 0.3 mg/dL (0.2-1.2); Calc. Creatinine Clearance 53 mL/min (70-130); Calcium 7.9 mg/dL (7.8-10.44); Carbon Dioxide 21 mmol/L (23-31); Chloride 107 mmol/L (98-107); Globulin 3.2 g/dL (2.4-3.5); Glucose 240 mg/dL (80-115); Potassium 3.7 mmol/L (3.5-5.1); Protein, Total 5.2 g/dL (5.8-8.1); Sodium 134 mmol/L (136-145)
[2020-11-25 06:52] LABS: Eosinophils 5 % (0-10); Lymphocytes 8 % (21-51); MDiff Complete? YES; Metamyelocyte 1 % (0-0); Monocytes 3 % (0-10); Neutrophil 82 % (42-75); Platelet Morphology Comment Appears Adequate
[2020-11-25] MEDS ORDERED: Lisinopril 20 MG TAB PO SCH (09:00)
[2020-11-25] MEDS ORDERED: Furosemide 20 MG TAB PO SCH (09:00)
[2020-11-25] MEDS ORDERED: Lisinopril 5 MG TAB PO SCH (09:00)
[2020-11-25] MEDS ORDERED: Clopidogrel Bisulfate 75 MG TAB PO SCH (09:00)
[2020-11-25] MEDS: Aspirin 81 mg Enteric Coated Tablet PO SCH (09:36)
[2020-11-25] MEDS: Amlodipine 5 MG TAB PO SCH (09:37)
[2020-11-25] MEDS: Apixaban 5 MG TAB PO SCH ×2 (09:37→20:39)
[2020-11-25] MEDS: Senokot S 8.6-50 MG TAB PO SCH ×2 (09:37→20:41)
[2020-11-25] MEDS: Carvedilol 6.25 MG TAB PO SCH ×2 (09:38→16:51)
[2020-11-25] MEDS: Linezolid 600 MG TAB PO SCH ×2 (09:38→20:55)
[2020-11-25] MEDS: Cefepime 2 GM in Sodium Chloride 0.9% 100 ML IVPB SCH ×2 (09:39→20:40)
[2020-11-25 09:44] LABS: SARS-CoV-2 NAA Rapid Test Not Detected (NotDetected)
[2020-11-25] MEDS ORDERED: Dextrose 5% in Water 1,000 ML IV PRN (13:03)
[2020-11-25] MEDS ORDERED: Dextrose 50% Abboject 50 ML SYRINGE SLOW IVP PRN (13:03)
[2020-11-25 13:07] VITALS: BMI 25.0
[2020-11-25] MEDS: HumaLOG 300 UNITS/3 ML VIAL SC PRN ×3 (13:41→20:56)
[2020-11-25] MEDS: Sodium Chloride 0.9% 1,000 ML IV SCH (13:42)
[2020-11-25] MEDS: hydrALAZINE 25 MG TAB PO SCH ×2 (15:02→20:41)
[2020-11-25] MEDS: Atorvastatin Calcium 40 MG TAB PO SCH (20:39)
[2020-11-25] MEDS: Polyethylene Glycol 3350 17 GM Packet PO SCH (20:42)
[2020-11-26] MEDS: Acetaminophen 325 MG TAB PO PRN ×2 (02:28→20:39)
[2020-11-26] MEDS: Senokot S 8.6-50 MG TAB PO SCH ×2 (08:48→20:29)
[2020-11-26] MEDS: hydrALAZINE 25 MG TAB PO SCH ×3 (08:48→20:28)
[2020-11-26] MEDS: Aspirin 81 mg Enteric Coated Tablet PO SCH (08:49)
[2020-11-26] MEDS: Carvedilol 6.25 MG TAB PO SCH ×2 (08:49→17:52)
[2020-11-26] MEDS: Apixaban 5 MG TAB PO SCH ×2 (08:50→20:29)
[2020-11-26] MEDS: Amlodipine 5 MG TAB PO SCH (08:50)
[2020-11-26] MEDS: Linezolid 600 MG TAB PO SCH ×2 (08:50→20:29)
[2020-11-26] MEDS: Cefepime 2 GM in Sodium Chloride 0.9% 100 ML IVPB SCH (08:51)
[2020-11-26] MEDS: Sodium Chloride 0.9% 1,000 ML IV SCH (09:09)
[2020-11-26 11:12] LABS: #Eosinphils 0.7 thou/uL (0.0-0.7); #Lymphocytes 1.3 thou/uL (1.20-3.40); #Monocytes 1.1 thou/uL (0.11-0.59); #Neutrophils 12.3 thou/uL (1.40-6.50); %Basophils 0.1 % (0.0-1.0); %Eosinophils 4.4 % (0.0-10.0); %Lymphocytes 8.5 % (21.0-51.0); %Monocytes 6.9 % (0.0-10.0); %Neutrophils 80.1 % (42.0-75.0); Mean Corpuscular HGB CONC 32.7 g/dL (32.0-36.0); Mean Corpuscular Hemoglobin 26.9 pg (27.0-31.0); Mean Corpuscular Volume 82.3 fL (78.0-98.0); Mean Platelet Volume 8.3 fL (7.4-10.4); Platelet Count 262 thou/uL (130-400); Red Blood Cell (RBC) Count 2.97 mill/uL (4.70-6.10); White Blood Cell (WBC) Count 15.3 thou/uL (4.8-10.8)
[2020-11-26 11:22] LABS: Anion Gap 10 mmol/L (10-20); BUN (Urea Nitrogen) 25 mg/dL (8.4-25.7); Calc. Creatinine Clearance 49 mL/min (70-130); Carbon Dioxide 22 mmol/L (23-31); Chloride 107 mmol/L (98-107); Glucose 211 mg/dL (80-115); Potassium 3.8 mmol/L (3.5-5.1); Sodium 135 mmol/L (136-145)
[2020-11-26] MEDS: Polyethylene Glycol 3350 17 GM Packet PO SCH (20:28)
[2020-11-26] MEDS: Atorvastatin Calcium 40 MG TAB PO SCH (20:29)
[2020-11-26] MEDS: HumaLOG 300 UNITS/3 ML VIAL SC PRN (20:30)
[2020-11-27] MEDS: Sodium Chloride 0.9% 1,000 ML IV SCH (02:32)
[2020-11-27] MEDS ORDERED: Ondansetron PF 4 MG/2 ML Vial IVP SCH (05:30)
[2020-11-27] MEDS ORDERED: Furosemide 20 MG/2 ML VIAL SLOW IVP SCH (05:30)
[2020-11-27 07:10] LABS: #Eosinphils 0.6 thou/uL (0.0-0.7); #Lymphocytes 1.1 thou/uL (1.20-3.40); #Monocytes 1.1 thou/uL (0.11-0.59); #Neutrophils 13.8 thou/uL (1.40-6.50); %Basophils 0.3 % (0.0-1.0); %Eosinophils 3.8 % (0.0-10.0); %Lymphocytes 6.4 % (21.0-51.0); %Monocytes 6.5 % (0.0-10.0); Hemoglobin 8.8 g/dL (14.0-18.0); Mean Corpuscular HGB CONC 31.7 g/dL (32.0-36.0); Mean Corpuscular Hemoglobin 26.4 pg (27.0-31.0); Mean Platelet Volume 8.5 fL (7.4-10.4); Platelet Count 320 thou/uL (130-400); RBC Distribution Width 16.1 % (11.5-14.5); Red Blood Cell (RBC) Count 3.33 mill/uL (4.70-6.10); White Blood Cell (WBC) Count 16.6 thou/uL (4.8-10.8)
[2020-11-27 07:25] LABS: Anion Gap 12 mmol/L (10-20); BUN (Urea Nitrogen) 29 mg/dL (8.4-25.7); Calc. Creatinine Clearance 44 mL/min (70-130); Calcium 8.4 mg/dL (7.8-10.44); Carbon Dioxide 19 mmol/L (23-31); Chloride 108 mmol/L (98-107); Glucose 248 mg/dL (80-115); Sodium 135 mmol/L (136-145)
[2020-11-27] MEDS: Aspirin 81 mg Enteric Coated Tablet PO SCH (08:13)
[2020-11-27] MEDS: Senokot S 8.6-50 MG TAB PO SCH ×2 (08:13→20:25)
[2020-11-27] MEDS: hydrALAZINE 25 MG TAB PO SCH ×3 (08:14→20:24)
[2020-11-27] MEDS: Carvedilol 6.25 MG TAB PO SCH ×2 (08:15→17:14)
[2020-11-27] MEDS: Amlodipine 5 MG TAB PO SCH (08:16)
[2020-11-27] MEDS: Apixaban 5 MG TAB PO SCH ×2 (08:16→20:24)
[2020-11-27] MEDS: Linezolid 600 MG TAB PO SCH ×2 (08:20→20:25)
[2020-11-27] MEDS ORDERED: Bumetanide 1 MG/4 ML VIAL IVP SCH (14:45)
[2020-11-27] MEDS: HumaLOG 300 UNITS/3 ML VIAL SC PRN ×2 (18:52→20:26)
[2020-11-27] MEDS: Atorvastatin Calcium 40 MG TAB PO SCH (20:24)
[2020-11-27] MEDS: Polyethylene Glycol 3350 17 GM Packet PO SCH (20:25)
[2020-11-28] MEDS ORDERED: Bumetanide 1 MG/4 ML VIAL IVP SCH (06:00)
[2020-11-28] MEDS: HumaLOG 300 UNITS/3 ML VIAL SC PRN (06:10)
[2020-11-28 07:21] LABS: #Basophils 0.1 thou/uL (0.0-0.2); #Eosinphils 0.4 thou/uL (0.0-0.7); #Lymphocytes 1.3 thou/uL (1.20-3.40); #Monocytes 0.9 thou/uL (0.11-0.59); #Neutrophils 11.6 thou/uL (1.40-6.50); %Basophils 0.4 % (0.0-1.0); %Eosinophils 2.9 % (0.0-10.0); %Lymphocytes 9.2 % (21.0-51.0); %Monocytes 6.4 % (0.0-10.0); %Neutrophils 81.2 % (42.0-75.0); Hemoglobin 8.2 g/dL (14.0-18.0); Mean Corpuscular HGB CONC 31.6 g/dL (32.0-36.0); Mean Corpuscular Hemoglobin 26.4 pg (27.0-31.0); Mean Corpuscular Volume 83.4 fL (78.0-98.0); Mean Platelet Volume 8.7 fL (7.4-10.4); Platelet Count 286 thou/uL (130-400); RBC Distribution Width 16.2 % (11.5-14.5); Red Blood Cell (RBC) Count 3.11 mill/uL (4.70-6.10); White Blood Cell (WBC) Count 14.2 thou/uL (4.8-10.8)
[2020-11-28 07:43] LABS: Anion Gap 11 mmol/L (10-20); BUN (Urea Nitrogen) 30 mg/dL (8.4-25.7); Calc. Creatinine Clearance 40 mL/min (70-130); Calcium 8.4 mg/dL (7.8-10.44); Carbon Dioxide 22 mmol/L (23-31); Chloride 108 mmol/L (98-107); Glucose 210 mg/dL (80-115); Sodium 137 mmol/L (136-145)
[2020-11-28] MEDS: Apixaban 5 MG TAB PO SCH (08:28)
[2020-11-28] MEDS: Amlodipine 5 MG TAB PO SCH (08:28)
[2020-11-28] MEDS: hydrALAZINE 25 MG TAB PO SCH ×2 (08:29→15:42)
[2020-11-28] MEDS: Carvedilol 6.25 MG TAB PO SCH ×2 (08:29→17:31)
[2020-11-28] MEDS: Aspirin 81 mg Enteric Coated Tablet PO SCH (08:29)
[2020-11-28] MEDS: Senokot S 8.6-50 MG TAB PO SCH (08:29)
[2020-11-28] MEDS: Linezolid 600 MG TAB PO SCH (10:26)
[2020-11-28 11:32] VITALS: TEMP 98.6
[2020-11-28 15:20] VITALS: BP 133/72
== END 2020-11-28 17:00 | disposition home health service (06) | DRG 564 ==
LOC: ERS 05:20 → T4-A 07:48 → OBSVTOIN 11-25 13:05
PROVIDERS: ADMIT Internal Medicine; ATTEND Internal Medicine
DX: T87.43 Infection of amputation stump, right lower extremity (principal); A41.9 Sepsis, unspecified organism; G93.41 Metabolic encephalopathy; I50.33 Acute on chronic diastolic (congestive) heart failure; J96.11 Chronic respiratory failure with hypoxia; I13.0 Hypertensive heart and chronic kidney disease with heart failure and stage 1 through stage 4 chronic kidney disease, or unspecified chronic kidney disease; N17.9 Acute kidney failure, unspecified; T81.44XA Sepsis following a procedure, initial encounter; E11.649 Type 2 diabetes mellitus with hypoglycemia without coma; E11.51 Type 2 diabetes mellitus with diabetic peripheral angiopathy without gangrene; I25.10 Atherosclerotic heart disease of native coronary artery without angina pectoris; E78.5 Hyperlipidemia, unspecified; N18.30 Chronic kidney disease, stage 3 unspecified; E11.22 Type 2 diabetes mellitus with diabetic chronic kidney disease; E87.6 Hypokalemia; R53.81 Other malaise; Y83.5 Amputation of limb(s) as the cause of abnormal reaction of the patient, or of later complication, without mention of misadventure at the time of the procedure; Z20.822 Contact with and (suspected) exposure to COVID-19; Z79.82 Long term (current) use of aspirin; Z79.4 Long term (current) use of insulin; Z79.899 Other long term (current) drug therapy; Z86.718 Personal history of other venous thrombosis and embolism; Z86.711 Personal history of pulmonary embolism; Z89.512 Acquired absence of left leg below knee; Z89.511 Acquired absence of right leg below knee; Z95.5 Presence of coronary angioplasty implant and graft; Z98.890 Other specified postprocedural states; Z89.421 Acquired absence of other right toe(s); Z95.1 Presence of aortocoronary bypass graft
CPT/HCPCS: 36415; 36416; 70450; 71045; 80048; 80053; 81003; 81015; 83605; 83735; 83880; 84145; 84484; 85025; 86140; 87040; 87086; 90471; 90732; 93005; 96365; 96366; 96367; 96375; 96376; G0009; G0378; J0692; J1815; J1940; J2270; J2405; J3490; U0002; U0003; U0005